=== PATIENT | female | born 1985 | race Caucasian/White ===

== ENCOUNTER 2016-11-09 14:23 | Inpatient (IN) | payer MEDICAID, OTHER ==
[~2016-11-09] VITALS: Ht 170.2 cm; Wt 86.4 kg
[~2016-11-09 14:23] MED LIST: AMPH20CA PO; GLYB1TAB2 PO; PREN1TAB47 PO; PROPYLTHIOURACIL PO
[2016-11-09] MEDS ORDERED: Haloperidol 5 mg/mL Inj IM ONE (14:40)
[2016-11-09 15:20] LABS: BASOPHILS % (AUTO) 0.4 % (0-3); EOSINOPHILS % (AUTO) 2.4 % (0-5); MONOCYTES % (AUTO) 8.7 % (4-12); Mean Corpuscular Volume 81.7 fL (81-100); NEUTROPHILS % (AUTO) 61.5 % (40-74); Platelet Count 241 bil/L (150-400)
--- NOTE | 2016-11-09 15:26 | ED.REPORT ---
HPI-Psychiatric Illness Date of Service Nov 09, 2016 ED Provider: Praveen Myers MD History of Present Illness: OCC Initial Face to Face eval by Dr. Hughes at 1445 at which time restraints placed Pt is a 31 y/o female w/ a hx of undiagnosed psychosis/mood disorder, presenting to the ED via PD due to agitation onset today. The police found her standing in the middle of the street yelling at everyone in sight including the police. The police said she became acutely agitated and they brought her into custody and brought her in here for a mental health evaluation. At time of interview she has been restrained and states that she has no rights and wants to be removed from restraints. She is uncooperative and thinks she is here for no reason. She initially was combative and agitated and still is. No further history can be obtained. Nursing Notes Stated Complaint: PSYCH Chief Complaint: Psychiatric Complaint Nursing Notes Reviewed: Yes ([employer], meds not reconciled) Allergies: Coded Allergies: No Known Allergies (Verified , 09/29/05) Scheduled ([propylthiouracil]) 50 MG PO BID Dextroamphetamine/Amphetamine ER (Dextroamphetamine/Amphetamine ER) 20 Mg Capsule 20 MG PO DAILY Glyburide, Micro/Metformin Hcl (Glyburide-Metformin 2.5/500 Mg) 1 Tab Tablet 1 TAB PO DAILY Vit/Fe Fumarate/Fa-Expunged Drug, Do (-Expunged Drug, Do Not Renew!) 1 Tab Tablet PO DAILY General Time Seen by MD: 15:16 Chief Complaint Other (agitation) Hx Obtained From: Patient, Police Unable to Obtain Hx: Uncooperative Arrived By: Police Onset Occurred: Just prior to arrival Risk-Psychiatric Illness Suicide Risk Stratification RF Statements: Risk factors reviewed Past Medical History Past Medical History Notes: Meds unknown Past Medical History Undiagnosed mood disorder/psychosis (prior HONEY) Past Surgical History None reported Smoking History Unknown if Ever Smoker Social History Alcohol Use: 1-3 per week Ambulatory Status Independent Review of Systems Unable to Obtain ROS Uncooperative Physical Exam Initial Vital Signs Vital Signs (First) Date Time Temp Pulse Resp B/P Pulse Ox O2 Delivery O2 Flow Rate FiO2 11/09/16 16:32 36.8 83 20 119/81 100 Room Air Initial VS: Reviewed, Unavailable (no vitals on chart, ordered) Head / Eyes: Atraumatic, Normocephalic, PERRL ENT: Mucous membranes moist, Conjunctiva normal, No scleral icterus Neck: Supple, Full range of motion Respiratory: Breath sounds normal, Clear to auscultation, No respiratory distress Abdomen / GI: Soft, Non-tender Extremities: Vascular intact, Neuro intact, No swelling General/Constitutional: Awake, Alert, Not toxic appearing No signs of trauma Uncooperative Neurologic: Oriented X3, Speech NL, No motor deficits, No sensory deficits PSYCH: Agitated, Hostile Combative yelling, rapid speech, No insight Cardiovascular: Regular rhythm, Heart sounds NL, No gallop, No murmurs, No rubs Heart Rate / Rhythm: Positive: Tachycardia Skin: Atraumatic, Warm, Dry No track tan Interpretation & Diagnostics Lab Results Interpretation Result Diagram: 11/09/16 1515 11/09/16 1515 Test 11/09/16 15:15 White Blood Count 9.2th/mm3 (3.8-10.1) Red Blood Count 5.62mil/mm3 (3.90-5.20) Hemoglobin 16.3g/dL (12.0-15.6) Hematocrit 45.9% (35.0-46.0) Mean Corpuscular Volume 81.7fL (81-100) Mean Corpuscular Hemoglobin 29.0pg (27.0-35.0) Mean Corpuscular Hemoglobin Concent 35.5% (32.0-37.0) Red Cell Distribution Width 12.9% (12.3-15.4) Platelet Count 241bil/L (150-400) Neutrophils (%) (Auto) 61.5% (40-74) Lymphocytes (%) (Auto) 26.7% (14-46) Monocytes (%) (Auto) 8.7% (4-12) Eosinophils (%) (Auto) 2.4% (0-5) Basophils (%) (Auto) 0.4% (0-3) Sodium Level 141mEq/L (134-144) Potassium Level 4.3mEq/L (3.5-5.2) Chloride Level 101mEq/L (97-108) Carbon Dioxide Level 21mmol/L (18-29) Blood Urea Nitrogen 12mg/dL (6-20) Creatinine 0.90mg/dL (0.57-1.00) Estimat Glomerular Filtration Rate 105mL/min (>59) Glucose Level 125mg/dL (60-99) Calcium Level 9.6mg/dL (8.5-10.1) Total Bilirubin 0.4mg/dL (0.0-1.2) Aspartate Amino Transf (AST/SGOT) 22U/L (0-50) Alanine Aminotransferase (ALT/SGPT) 13U/L (0-32) Alkaline Phosphatase 69U/L (25-150) Total Protein 7.1g/dL (6.4-8.4) Albumin 4.5g/dL (3.4-5.0) Thyroid Stimulating Hormone (TSH) 0.722uIU/mL (0.450-4.500) Human Chorionic Gonadotropin, Qual Negative (Negative) Lab Results Interpretation: CBC normal CMP normal TSH normal negative Alcohol 0 Patient refused to provide a urine sample ECG Interpretation Time: 16:50 Interpreted by: ED physician Normal ECG Interpretation: Normal ECG w/ rate of... (64), Normal rate, Normal sinus rhythm, No acute ischemic changes, Normal QRS, Normal axis, Normal intervals, Adequate tracing Re-Eval/Medical Decision Med Decision/Clinical Course Sustained 31-year-old female brought by police agitated and combative. Initially greeted by Dr. Robles, was combative enough that chemical sedation 4 point Restraints were required. I personally interviewed and examined the patient the patient still agitated, yelling at me, poor judgment and insight. According to the SHUTTLE ROUTE VEHICLE OPERATOR is able talk to the family, there has been some threats to herself and others. Please see the SHUTTLE ROUTE VEHICLE OPERATOR note. No visible signs of trauma were identified. Blood work was obtained and was normal. Alcohol is negative. Despite initial chemical sedation and restraints, the patient remained agitated , and additional doses were required. No acute medical etiology is identified. Even with this, the patient was remained inappropriate, pressured speech, agitation and psychosis. The SHUTTLE ROUTE VEHICLE OPERATOR's been able to gather enough information merited DCR evaluation. DCR came and evaluated the patient and the patient be detained. MedSurg is underway, with a high probability being able to be admitted to the care center. Source of Hx: Old records Consultation : Consulted With: expeller worker Call Returned at: 20:42 Career Agent: Agrees with eval, Agrees with plan Note: Recommends contact DCR. Counseled Regarding: Diagnosis, Lab results Discharge & Departure Impression: Primary Impression: Psychosis Psychosis type: unspecified psychosis type Qualified Code: F29 - Unspecified psychosis not due to a substance or known physiological condition Discharge Condition All VS Reviewed: Yes Condition: Stable Referrals: Leigh Delcid DO (PCP) Heidi Attestation Portions of this note were transcribed by Mauricio Victor. I, Dr. Myers personally performed the history, physical exam and medical decision-making; I reviewed and confirmed the accuracy of the information in the transcribed note. Signed by Heidi Green, 11/09/16 - 1599 copies to: Leigh Delcid Matthew F MD Nov 09, 2016 15:26 MAURICIO VICTOR Nov 09, 2016 15:46
[2016-11-09 16:32] VITALS: BP 119/81; PULSE 83; RESP 20; O2SAT 100
[2016-11-09 20:46] VITALS: BP 131/96; PULSE 60; RESP 18; O2SAT 99
[2016-11-10 01:14] VITALS: BP 129/92; PULSE 70; RESP 18; O2SAT 96
[2016-11-10 05:14] VITALS: BP 122/87; PULSE 64; RESP 20; O2SAT 97
[2016-11-10] MEDS ORDERED: OLANZapine Zydis ODT 5 mg Tablet PO ONE (05:25)
[2016-11-10] MEDS ORDERED: Alum-Mag Hydrox-Simeth 30 mL Suspension PO PRN (05:35)
[2016-11-10] MEDS ORDERED: OLANZapine Zydis ODT 5 mg Tablet PO PRN (05:35)
[2016-11-10] MEDS ORDERED: Benzocaine-Menthol Lozenge 2/Pkg PO PRN (05:35)
[2016-11-10 05:44] VITALS: BP 122/87; PULSE 64; RESP 20; O2SAT 97
--- NOTE | 2016-11-10 05:53 | NUR ---
admit note 11-7 this is a 31 year old female who was brought to [facility] er by police after being found in the street yelling at traffic. she was medically cleared, evaluated and detained vanessa as a danger to others. her parents were recently given custody of her children and she has been threatening them, herself and the children. she has a past dx of anxiety disorder and schizophrenia per her parents. she was detained at [facility] in 2016. did not follow up with out patient. she arrived at 0540 with er staff and security. was given bed 229 and is resting quietly at this time. will be assessed q 15 minutes. kinsey
--- NOTE | 2016-11-10 06:43 | NUR ---
ADMIT/NOC OBS Pt arrived to unit at 540. She did not sign paperwork and went right to bed. Pt was tearful and refused to interact with staff upon arrival. Observed Q15 as ordered.
[2016-11-10] MEDS ORDERED: DEXT20TA8 PO (10:28)
[2016-11-10] MEDS ORDERED: LISD30CA3 PO (10:28)
--- NOTE | 2016-11-10 14:24 | NUR ---
Nursing Notes [id number] (This note was made by Harinder Garnica RN, I currently do not have access to Mental Health Unit patient list) S- "I dont hear anything or see anything. I dont have thoughts of hurting others or myself. I never have." O- Pt. in bed all morning. Makes eye contact when communicating. Pt. appears as if she wants to be left alone by answering questions rapidly yet appropriately. Pt. is slightly unkempt as well. A- Clear statements, makes eye contact and maintains when communicating. Pt. refused breakfast and lunch stating she is not hungry. Pt. goes back to sleep after answering questions. Denies hurting others or herself when asked. P- Follow plan of care, monitor behavior, monitor side effects of medication, safety to Pt. and others (This note was made by Harinder Garnica RN, I currently do not have access to Mental Health Unit patient list)
--- NOTE | 2016-11-10 16:51 | NUR ---
[facility] Day Shift Pt has spent the entirety of the shift resting/sleeping in her room. Unable to determine affect and behavior at this time. Pt has not attended any group activities or meals at this time.
--- NOTE | 2016-11-10 17:57 | NUR ---
PT REFUSING MEDICATION Pt. refused her 17:30 scheduled dose of Latuda this evening. Stated: "I'm not taking any medications, I'm not supposed to be here, I've never heard voices and I'm not depressed! My dad set me up! I need to get out of here!"
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
--- NOTE | 2016-11-11 05:36 | NUR ---
Nursing note: equipment planner Patient appears to be sleeping on safety checks during the night. Offers no complaints.
[2016-11-11 10:55] VITALS: BP 145/91; PULSE 68; RESP 13
--- NOTE | 2016-11-11 13:29 | NUR ---
NURS NOTE DAYSHIFT Mood: Anxiety 07/21; denies depression. Affect: Intense. Thought Process/Content: "I think I own a lot of land in [place], maybe land where there is a war. Im not sure. Its the only explanation that makes since. I've got this idea for an [employer] of things . . . 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 Speech, pressured and rapid. Behavior: Appropriate with staff and peers. Ate meals in dining room, observed watching television with peers. Currently resting in room. Pt given yoga mat for stretching. PRNs/NURS: Pt refused PM lurasidone 40 mg. yesterday (11/10/16) Addendum: 11/11/16 at 1333 by YU CLEMONS RN DenVALERIA tyler SI. CESAR Bautista.
--- NOTE | 2016-11-11 15:54 | NUR ---
Electron Beam Welder/Counselor S:"I"m really upset with the whole process." O: Patient denied SI and HI, no AVH, stated her anxiety was fine, and that she did not have very much depression. A: Patient stated she did not know why she was here, and was upset at not being discharged. She stated that she was set up, and that it was due to her father being an commonwealth attorney. She was very delusional and tangential, and very grandiose. She was erratic and rapid in her speech. P: Follow care plan and coordinate with outpatient providers.
--- NOTE | 2016-11-11 16:52 | PCM.PNPSY ---
Subjective Date of Service Nov 11, 2016 Subjective The patient reports that she is unsure why she is in hospital. She continues to report that she believes she did nothing wrong and should not be in the hospital. She goes on to talk about the police being controlled by her father in some form of conspiracy. 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 She talked about having purchased a number of Internet names which were related to commerce. Since the local port at increased activity she felt it was due to her. She then indicated that she might have land that is being kept from her such as possibly the port. When she was asked who typically owns reports she stated, "the government... Maybe I am deep government ?" The patient went on to talk about [place] her [place] reflecting her own heart etc. the patient has so far refused Latuda. Urine tox screen came back positive for amphetamines and cannabinoids. Given her psychosis she was advised to avoid Adderall or other amphetamines and at some later date to consider Strattera. Sleep: 8 hours Appetite: One half of breakfast one half at lunch. Suicidal and homicidal ideation: Denies Auditory hallucinations: Denies Visual hallucinations: Denies Other Psychotic Symptoms: As above, paranoid delusions, ideas of reference and clang associations. Anxiety: "Fine" Depression: "Not so much" Current Medications Current Medications Olanzapine 5 mg ONCE ONCE PO Last administered on 11/10/16 05:27; Admin Dose 5 MG; Start 11/10/16 at 05:25; Stop 11/10/16 at 05:26; Status DC Olanzapine 10 mg ONCE ONCE IM Last administered on 11/09/16 17:49; Admin Dose 10 MG; Start 11/09/16 at 17:35; Stop 11/09/16 at 17:36; Status DC Mental Status Exam Vital Signs Vital Signs Date Time Temp Pulse Resp B/P Pulse Ox O2 Delivery O2 Flow Rate FiO2 11/11/16 10:55 35.5 68 13 145/91 Appearance: Neat/well groomed Attitude: Guarded Behavior: Overtly anxious Affect: Labile Mood: Irritable Thought Process/Associations: Loose, Tangential Speech Production: Abundant Speech Rate: Pressured Speech Articulation: Normal Thought Content: Ideas of Reference, Suspicious, Perseveration Danger to Self/Suicidal Ideati: None Danger to Others: None Hallucinations: Auditory (Denies), Visual (Denies) Consciousness: Alert Orientation: Person, Place, Date Memory: Short Term Memory (Impaired) Estimate Intellectual Function: Average Basis for IQ estimate: Word use/vocabulary, Educational history Attention/Concentration & Cogn: Impaired Insight: Limited Judgement: Poor Result Diagram: 11/09/16 1515 11/09/16 1515 Mental Health Plan The patient is a 31-year-old female with a history of psychotic disorder who reportedly has been using Adderall. There is also some question of whether there is a history of schizophrenia schizophrenia. The patient did not follow up with outpatient mental health care and apparently has been declining prior to admission. She is currently presenting with paranoid delusions, ideas of reference and clanging associations. She is currently declining medications. [place] I: 1. Psychotic disorder, unspecified. 2. Marijuana use disorder. 3. Rule out amphetamine use disorder. [place] II: Deferred. [place] III: See past medical history. [place] IV: Loss of custody of children. Other stressors unknown. [place] V: Global Assessment of Functioning 25. Medications Latuda 40 mg daily increase as tolerated Treatments 1. The patient will be admitted to the [facility] and provided a safe and secure environment. 2. The patient is currently denying active suicidal ideation and is not in need of a one-to-one at this time. 3. The patient is encouraged to participate with group and milieu activities. 4. The patient will be seen by the treatment team on a daily basis to assess symptoms, side effects, and response to treatment. 5. The patient will be restarted on lurasidone 40 mg daily and increase to 40 mg twice daily due to psychotic symptoms. 6. Lorazepam 2 mg every 4 hours as needed for anxiety or agitation. 7. Olanzapine 10 mg q.6 hours due to severe agitation. 8. Zolpidem 5 mg nightly as needed for insomnia. 9. Anticipated length of stay is 7-10 days. Omari Vazquez MD Nov 11, 2016 16:52
--- NOTE | 2016-11-12 03:22 | NUR ---
OBS [id number] Pt out on unit watching TV in beginning of shift. In room most of shift. Brief interaction Pt refused group and snack but was pleasant with no outbursts. Asleep at 2100. Observed Q15 as ordered.
--- NOTE | 2016-11-12 06:35 | NUR ---
Sleep Adequate sleep through the night with no noted distress or awakening per protocol checks. Total sleep 9+ hours.
[2016-11-12] MEDS: LORazepam 2 mg Tablet PO PRN (08:41)
--- NOTE | 2016-11-12 14:44 | NUR ---
Nursing Notes [id number] (This note was made by Harinder Garnica RN, I currently have no access to Mental Health Unit patient list.) S- "You guys are holding me against my will. I want to see court documents that are stamped by the court saying I am being held here by court order." O- Pt. up this morning will kept and angry about not having a registered private duty nurse. Pt. stating that "If this was prison I would have a registered private duty nurse within 24 hours and I have been here for 3 days now. Why am I even here?" Pt. was given copies of her documents stating why she is here including what the police said and Pt. states "the documents are lies, all lies, I dont have mental problems and I am the best mother out there. How do you know those documents are telling the truth?" A- Pt. is angry this morning for being here more than 3 days. When Pt. was arguing at times it was hard to understand her as she would not make sense. Pt. did take her medications and then afterwards began to apologize for her misbehavior to the staff. P- Follow plan of care, monitor behavior, monitor side effects of medication, safety to Pt. and others (This note was made by Harinder Garnica RN, I currently have no access to Mental Health Unit patient list.)
[2016-11-12 16:30] VITALS: BP 126/91; PULSE 86; RESP 16
--- NOTE | 2016-11-12 21:06 | NUR ---
Observations 0900 - 2130 Pt affect and mood was labile, agitated, irritable, upset about being here and delusional. Pt speech was very loud when agitated and normal rate of speech when not agitated. Pt eye contact was ok. Pt is pleasant, polite and cooperative. Pt was in and out of her room most of the day. Pt attended community meeting and set a daily goal. Pt did not attend group or unit activities. Pt is minimally social with peers and mostly keeps to herself. Pt attended meals in D.R. and has a good appetite. Pt ate about 100% of her meals. Pt ate snack. Pt took a shower and attended to ADL's. Pt watched TV briefly before going to her room for the evening. Pt had a couple of outbursts during the day and voicing her concerns and beliefs that she is being held against her will. Pt had a couple of phone calls from her mom and she was shouting how it was her moms fault she is here and continued to yell at her mom. Pt was talked to by headline writer about yelling and language while on the phone. Pt was observed every 15 minutes as ordered throughout the shift.
--- NOTE | 2016-11-12 23:33 | PCM.PNPSY ---
Subjective Date of Service Nov 12, 2016 Subjective The patient reports that she is unsure why she is in hospital. She continues to report that she believes she did nothing wrong and should not be in the hospital. She again talked about the police being controlled by her father in some form of conspiracy. She stated that she should be released. She reported having read the [facility] paperwork. She stated that there was o reason why she could not be released early and demanded to know why she was still here. Informed patient that she is suffering from psychotic disorder and not appropriate for discharge. Informed of experiencing ideas of reference, clang associations, delusions. Patient demands, "I want an attorney general, a public relations intern, now!" Informed patient that messages have been left. Patient became increasingly agitated and conversation ended. Sleep: 9+ hours Appetite: Poor Suicidal and homicidal ideation: Denies Auditory hallucinations: Denies Visual hallucinations: Denies Other Psychotic Symptoms: As above, paranoid delusions, ideas of reference and clang associations. Endorses racing thoughts, but adds, "Just thinking." Anxiety: "Just here" Depression: denies Mental Status Exam Vital Signs Vital Signs Date Time Temp Pulse Resp B/P Pulse Ox O2 Delivery O2 Flow Rate FiO2 11/12/16 16:30 35.8 86 16 126/91 Appearance: Neat/well groomed Attitude: Guarded, Hostile/Threatening Behavior: Overtly anxious Affect: Labile Mood: Irritable Thought Process/Associations: Loose, Tangential Speech Production: Abundant Speech Rate: Pressured Speech Articulation: Normal Thought Content: Ideas of Reference, Suspicious, Perseveration Danger to Self/Suicidal Ideati: None Danger to Others: None Delusions: Paranoid (Endorses) Hallucinations: Auditory (Denies), Visual (Denies) Consciousness: Alert Orientation: Person, Place, Date Memory: Short Term Memory (Impaired) Estimate Intellectual Function: Average Basis for IQ estimate: Word use/vocabulary, Educational history Attention/Concentration & Cogn: Impaired Insight: Limited Judgement: Poor Result Diagram: 11/09/16 1515 11/09/16 1515 Mental Health Plan The patient is a 31-year-old female with a history of psychotic disorder who reportedly has been using Adderall. There is also some question of whether there is a history of schizophrenia schizophrenia. The patient did not follow up with outpatient mental health care and apparently has been declining prior to admission. She is currently presenting with paranoid delusions, ideas of reference and clang associations. She is quite agitated with poor insight and not appropriate for discharge. [place] I: 1. Psychotic disorder, unspecified. 2. Marijuana use disorder. 3. Rule out amphetamine use disorder. [place] II: Deferred. [place] III: See past medical history. [place] IV: Loss of custody of children. Other stressors unknown. [place] V: Global Assessment of Functioning 25. Medications Latuda 40 mg daily increase as tolerated Treatments 1. The patient will be admitted to the [facility] and provided a safe and secure environment. 2. The patient is currently denying active suicidal ideation and is not in need of a one-to-one at this time. 3. The patient is encouraged to participate with group and milieu activities. 4. The patient will be seen by the treatment team on a daily basis to assess symptoms, side effects, and response to treatment. 5. The patient will be restarted on lurasidone 40 mg daily and increase to 40 mg twice daily due to psychotic symptoms. 6. Lorazepam 2 mg every 4 hours as needed for anxiety or agitation. 7. Olanzapine 10 mg q.6 hours due to severe agitation. 8. Zolpidem 5 mg nightly as needed for insomnia. 9. Anticipated length of stay is 7-10 days. Omari Vazquez MD Nov 12, 2016 23:33
--- NOTE | 2016-11-13 05:16 | NUR ---
Nursing Note Body Welder 11pm to 7am Pt asleep at start of shift and slept through the night uninterrupted Pt monitored with q15 min face checks for safety, location and accountability
--- NOTE | 2016-11-13 09:52 | NUR ---
nursing: Pt is pressured, hyperverbal and obsessing on her legal paperwork, sure she's being held on false claims, and wrongly. She spirals up on this periodically("Why am I here! Why am I here!") but will argue with any thing we try to say. Fortunately will stop for a while(so far) when we call a time out. She has no insight into how or why she is here. Some grandiosity (" I have always been perfect mother!" Addendum: 11/13/16 at 1417 by GIULIANO WHEELER RN nursing, continued: She later was able to drop it, was out in the milieu and social, and declined afternoon group. But started all over again in discussion with the MD which had to finally be stopped as it was going no where and pt went to her room on her own.
--- NOTE | 2016-11-13 15:38 | NUR ---
Building Surveyor/Counselor S:"I still don't understand why I"m here." O/A: Patient did not answer questions, but wanted to focus on being allowed to leave. She re-engaged the and other staff into a circular conversation in regard to her reason for being detained, her HONEY status and her court date on sunday. She was very aggressive, agitated and angry.She was also very grandiose and tangential, and did not understand why she would be diagnosed with Psychosis. The interview was terminated due to the patient not being willing to listen. She has also been very demanding of the [facility] staff, demanding a phone, clothes, etc. P:Follow care plan and coordinate with outpatient providers.
[2016-11-13 17:57] VITALS: BP 140/88; PULSE 69; RESP 19
--- NOTE | 2016-11-13 18:06 | NUR ---
Observations [id number] Pt very agitated in the morning regarding her stay here. Pt requested legal rights be printed off which this ticket writer provided to her. This ticket writer observed her yell at other staff regarding her stay and rights. Pt later paced unit with another pt and calmed down. Pt friendly with peers, socializing much of the day. She did attend groups and do yoga in the morning. Pt used the phone and spoke with mother, was heard crying and noticeably upset. Pt attended all meals, eating 75%. She was observed every 15 minutes of shift as directed.
--- NOTE | 2016-11-13 22:27 | NUR ---
NURS NOTE [id number] Mood: Irritable. Affect: Elevated. Behavior: Pt observed speaking to mother on the telephone in a loud, argumentative. Staff reminded pt multiple times to lower volume, pt eventually quieted down and hung up phone. Somewhat, Thought Content/Process: "I've read like the whole law." Delusional, grandiose.
--- NOTE | 2016-11-13 22:35 | PCM.PNPSY ---
Subjective Date of Service Nov 13, 2016 Subjective The patient reports that she is unsure why she is in hospital. She continues to report that she believes she did nothing wrong and should not be in the hospital. The patient reported that she was unfairly treated by the police. She stated that she should be released and that this production underwriter had no right to not release her. As patient became increasingly agitated, nursing staff was brought in. She reported having read the [facility] paperwork. Patient was angry that this production underwriter had called another patients psychiatrist and although she had not provided the name, I should know it and call. She initially declined to provide the name but eventually indicated that Dr.David Griffin is her psychiatrist and requested that this production underwriter call him. She again stated that there was no reason why she should not be released early and demanded to know why she was still here. Informed patient that she is suffering from psychotic disorder and not appropriate for discharge. Informed of experiencing ideas of reference ([place], [address] behind her apartment, indicated she was the "heart of [place]"), clang associations, delusions (owning port or being part of "[employer]"). Patient again demanding health care attorney and indicated that she had left messages but received no answer yet. Patient continued to escalate and interview terminated. Sleep: 7+ hours Appetite: Poor Suicidal and homicidal ideation: Denies Auditory hallucinations: Denies Visual hallucinations: Denies Other Psychotic Symptoms: As above, paranoid delusions, ideas of reference and clang associations. Anxiety: 8/10 Depression: 0/10 Mental Status Exam Vital Signs Vital Signs Date Time Temp Pulse Resp B/P Pulse Ox O2 Delivery O2 Flow Rate FiO2 11/13/16 17:57 36.6 69 19 140/88 Appearance: Neat/well groomed Attitude: Guarded, Hostile/Threatening Behavior: Overtly anxious Affect: Labile Mood: Irritable Thought Process/Associations: Loose, Tangential Speech Production: Abundant Speech Rate: Pressured Speech Articulation: Normal Thought Content: Ideas of Reference, Suspicious, Perseveration Danger to Self/Suicidal Ideati: None Danger to Others: None Delusions: Paranoid (Endorses) Hallucinations: Auditory (Denies), Visual (Denies) Consciousness: Alert Orientation: Person, Place, Date Memory: Short Term Memory (Impaired) Estimate Intellectual Function: Average Basis for IQ estimate: Word use/vocabulary, Educational history Attention/Concentration & Cogn: Impaired Insight: Limited Judgement: Poor Result Diagram: 11/09/16 1515 11/09/16 1515 Mental Health Plan The patient is a 31-year-old female with a history of psychotic disorder who reportedly has been using Adderall. There is also some question of whether there is a history of schizophrenia schizophrenia. The patient did not follow up with outpatient mental health care and apparently has been declining prior to admission. She is currently presenting with paranoid delusions, ideas of reference and clang associations. She is quite agitated with poor insight and not appropriate for discharge. Patient's psychiatrist reports patient has ongoing ideas of reference and delusions as above more consistent with schizophrenia or schizoaffective disorder. Discussed current recommendations, outpatient provider concurred with plan. [place] I: 1. Schizophrenia, chronic, paranoid type vs. Schizoaffective disorder 2. Marijuana use disorder. 3. Rule out amphetamine use disorder. [place] II: Deferred. [place] III: See past medical history. [place] IV: Loss of custody of children. Other stressors unknown. [place] V: Global Assessment of Functioning 25. Medications Latuda 40 mg daily increase as tolerated Treatments 1. [facility] and provided a safe and secure environment. 2. The patient is currently denying active suicidal ideation and is not in need of a one-to-one at this time. 3. The patient is encouraged to participate with group and milieu activities. 4. The patient will be seen by the treatment team on a daily basis to assess symptoms, side effects, and response to treatment. 5. The patient will be restarted on lurasidone 40 mg daily and increase to 40 mg twice daily due to psychotic symptoms. 6. Lorazepam 2 mg every 4 hours as needed for anxiety or agitation. 7. Olanzapine 10 mg q.6 hours due to severe agitation. 8. Zolpidem 5 mg nightly as needed for insomnia. 9. Anticipated length of stay is 10-14 days. Omari Vazquez MD Nov 13, 2016 22:35
--- NOTE | 2016-11-14 06:04 | NUR ---
Noc shift note [id number] Pt agreeable to care needs and slept 6.25 hours without s/sx of distress. No behavioral issues reported or observed. Continue to monitor for behavioral issues, mood changes, emotional well being by implementing Q15 minute check for safety. Care ongoing.
[2016-11-14 08:10] VITALS: BP 152/110; PULSE 70; RESP 16
--- NOTE | 2016-11-14 13:55 | NUR ---
Nursing: Pt continues labile: at times pleasant, social and helpful to peers; at other times(eg after the court ida tried to talk to her about her rights to refuse before court tomorrow. She would not sign either yes or no) is loud, angry, demanding to see administration, physician, "immediately" and going over and over the complaints again of being held wrongly, not having her rights, arguing about her legal paperwork. She can not be reasoned with at these times or even listen to any explanations, so we have to cut it off and direct her to a time out which she fortunately does comply with. She has been compliant with her scheduled medications but declined any prns. She later requested all her legal paperwork and this was given. She is now sitting in the day room, smiling talking with peers and staff. She continues phone restriction due to loud, hostile agitated conversations.
--- NOTE | 2016-11-14 15:29 | NUR ---
S:"I'm going to have your license." O: Patient did not report any SI, HI, no AVH, no anxiety or depression. A: Patient was tangential and angry, very uncooperative and hostile towards staff. She refused to listen to any explanation to her demands and questions. When interacting with other patients, she is friendly and pleasant. Interview was terminated early due to patient's behavior and threats. P:Follow care plan and coordinate with outpatient providers.
--- NOTE | 2016-11-14 18:09 | PCM.PNPSY ---
Subjective Date of Service Nov 14, 2016 Subjective The patient presented a complaint to the nurse's station indicating that there were individuals talking to her yesterday during the treatment team meeting that she did not recognize. When the nurse was brought back in yesterday, she was introduced and the patient's counselor was also later in attendance. The master deputy sheriff court security later appeared, identified herself and that she did not need to speak with this individual. The patient continued to talk as if nothing had been said. Today, the patient reports that she is "pretty agitated. I am reporting you to the medical board. I need another doctor." The patient was offered a second opinion by hospitalist but was informed that there was no other psychiatrist at the present moment, she did not respond to offer. The patient was advised to speak with her securities attorney regarding her request but she stated that she did not want Danya Martin is her securities attorney. The patient escalated fairly quickly and the interview was terminated. Sleep: 6.25 hours Appetite: "Fine" Suicidal and homicidal ideation: Denies Auditory hallucinations: Denies Visual hallucinations: Denies Other Psychotic Symptoms: Ongoing paranoia and lack of insight Anxiety: "Super anxiety." Depression: Denies Mental Status Exam Appearance: Neat/well groomed Attitude: Guarded, Hostile/Threatening Behavior: Overtly anxious Affect: Labile Mood: Irritable Thought Process/Associations: Loose, Tangential Speech Production: Abundant Speech Rate: Pressured Speech Articulation: Normal Thought Content: Ideas of Reference, Suspicious, Perseveration Danger to Self/Suicidal Ideati: None Danger to Others: None Delusions: Paranoid (Endorses) Hallucinations: Auditory (Denies), Visual (Denies) Consciousness: Alert Orientation: Person, Place, Date Memory: Short Term Memory (Impaired) Estimate Intellectual Function: Average Basis for IQ estimate: Word use/vocabulary, Educational history Attention/Concentration & Cogn: Impaired Insight: None Judgement: Poor Result Diagram: 11/09/16 1515 11/09/16 1515 Mental Health Plan The patient is a 31-year-old female with a history of psychotic disorder who reportedly has been using Adderall. There is also some question of whether there is a history of schizophrenia. The patient did not follow up with outpatient mental health care and apparently has been declining prior to admission. She is currently presenting with paranoid delusions, ideas of reference and clang associations. She is quite agitated with little to no insight and not appropriate for discharge. Patient's psychiatrist reports patient has ongoing ideas of reference and delusions as above more consistent with schizophrenia or schizoaffective disorder. Discussed current recommendations, outpatient provider concurred with plan. The patient has continued to refuse medications and is now requesting a second opinion. She is also demanding an alternate securities attorney. Will discuss patient requests with her securities attorney for an outside second opinion. [place] I: 1. Schizophrenia, chronic, paranoid type vs. Schizoaffective disorder 2. Marijuana use disorder. 3. Rule out amphetamine use disorder. [place] II: Deferred. [place] III: See past medical history. [place] IV: Loss of custody of children. Other stressors unknown. [place] V: Global Assessment of Functioning 25. Medications Latuda 40 mg daily increase as tolerated Treatments 1. The patient is admitted to the [facility] and provided a safe and secure environment. 2. The patient is currently denying active suicidal ideation and is not in need of a one-to-one at this time. 3. The patient is encouraged to participate with group and milieu activities. 4. The patient will be seen by the treatment team on a daily basis to assess symptoms, side effects, and response to treatment. 5. The patient will be restarted on lurasidone 40 mg daily and increase to 40 mg twice daily due to psychotic symptoms. 6. Lorazepam 2 mg every 4 hours as needed for anxiety or agitation. 7. Olanzapine 10 mg q.6 hours due to severe agitation. 8. Zolpidem 5 mg nightly as needed for insomnia. 9. Anticipated length of stay is 10-14 days. Omari Vazquez MD Nov 14, 2016 18:09
--- NOTE | 2016-11-14 18:28 | NUR ---
Observations [id number] Pt very agitated in the morning, yelling in dining area regarding her stay and her rights. "Who is this lady? My rights have been violated!" (referring to freelance court stenographer.) Pt very upset that previous visit with doctor included case management and care team. Pt yelled at multiple staff regarding this, was redirected to room. Pt also called [facility] on three different occasions regarding her care. Pt was eventually placed on phone restriction. Pt attended all meals, eating an average of 75%. She visited with her Dad in the afternoon, becoming again very agitated and irritable regarding the fact that she has court and is not being released today. This junior technical writer overhead her stating to her father " you raised me to be strong- I'm standing up for myself....if that's wrong now then you're not my father!" Pt walked out of her meeting with her Dad. She later played ping pong with peers. Pt good with ADL's, was observed every 15 minutes of shift as directed.
--- NOTE | 2016-11-14 19:57 | NUR ---
NURSING NOTE [id number] Mood: "Go away. I don't need to talk to you" Affect: bright and pleasant in milieu w/peers, irritable w/staff Behavior: pt. has been visible all shift, spending time in milieu chatting w/peers, went out on the patio, paced the hallways off and on. Pt. refused her scheduled 17:30 Latuda. Whenever staff attempts to interact w/pt. or assess her, the pt. begins to become agitated. Thought processes: paranoid, lacks insight into illness.
--- NOTE | 2016-11-15 06:24 | NUR ---
Nursing Note Assistance Representative 11pm to 7am Pt asleep at start of shift and slept uninterrupted throughout the night Monitored pt with 15 minute face checks for safety, location and accountability
[2016-11-15 10:35] VITALS: BP 139/105; PULSE 68; RESP 16
[2016-11-15] MEDS ORDERED: Haloperidol 5 mg/mL Inj ONE (14:30)
[2016-11-15] MEDS ORDERED: Haloperidol 5 mg/mL Inj IM ONE (14:30)
[2016-11-15] MEDS ORDERED: diphenhydrAMINE 25 mg Capsule PO ONE (14:39)
--- NOTE | 2016-11-15 15:25 | NUR ---
Nursing day [id number] S- "I am a good mother and I was talking metaphorically about burning the house down. 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 up this morning will kept and ready for court. Pt. is observed eating with other Pts. for breakfast and lunch. Pt. is also being social with other Pts. At ~1400 Pt. requested for a phone call but was reminded she is on phone restrictions and triggered her to get more upset and angry, barged into the courtroom. We were able to get Pt. to leave the court room and about 1410 catarino lee was called. Pt. was taken into seclusion yelling the entire way at ~1430. A- Pt. got extremely upset, angry and agitated when reminded that she is on a phone restriction. Catarino lee was called and Pt. was taken into seclusion room. P- Follow plan of care, monitor behavior, monitor side effects of medication, safety to Pt. and others Addendum: 11/15/16 at 1635 by ISABELA MCDONNELL RN Pt. went into seclusion at 1430. Door was opened at 1620. Please see seclusion interventions for documentation notes.
[2016-11-15] MEDS: LORazepam 2 mg Tablet PO PRN (15:32)
--- NOTE | 2016-11-15 17:37 | NUR ---
[facility] Day Shift Pt has difficulty maintaining behavioral control throughout the shift. Pt affect appears labile. Pt appears bright, enthusiastic in the AM, angry and hostile in the afternoon following court proceedings. Pt placed in seclusion after failing to follow instructions to stop screaming and threatening staff in the dining room. Pt returned to the unit at 16:20 following the establishment of a behavioral contract with staff. Pt has remained in her bed/room since. Pt attended community meeting and AM group activities, but has been isolative throughout the afternoon/evening. Pt attended breakfast and lunch and ate approx 100% of both meals. Pt has not attended dinner at this time.
--- NOTE | 2016-11-15 23:07 | PCM.PNPSY ---
Subjective Date of Service Nov 15, 2016 Subjective The patient was detained for 14 days of inpatient treatment and following court became agitated and eventually was placed in seclusion due to severe agitation. The patient was agitated, refused oral medications.spit them out. She was giving haloperidol 5mg, Benadryl 50mg and lorazepam 2mg for severe agitation. The patient continues to report that there is nothing wrong with her and that she not be treated with medication. Discussed with patient that her consistent refusal of medication would suggest need for long-active injectable medication. Discussed risks and benefits of Risperdal and Abilify including metabolic syndrome and TD and patient chose Risperdal. Sleep: 9.25 hours Suicidal and homicidal ideation: Denies Auditory hallucinations: Denies Visual hallucinations: Denies Other Psychotic Symptoms: Ongoing paranoia and lack of insight Anxiety: Due to court and seclusion. Depression: Denies Current Medications Current Medications Diphenhydramine HCl 50 mg ONCE ONCE IM Last administered on 11/15/16 15:23; Admin Dose 25 MG; Start 11/15/16 at 14:30; Stop 11/15/16 at 14:50; Status DC Diphenhydramine HCl 50 mg STK-MED ONCE .ROUTE Last administered on 11/15/16 15: 24; Admin Dose 25 MG; Start 11/15/16 at 14:31; Stop 11/15/16 at 14:32; Status DC Haloperidol Lactate 5 mg STK-MED ONCE .ROUTE Last administered on 11/15/16 15:22 ; Admin Dose 5 MG; Start 11/15/16 at 14:30; Stop 11/15/16 at 14:31; Status DC Lurasidone HCl 40 mg DAILYWD PO Last administered on 11/15/16 17:51; Admin Dose 40 MG; Start 11/14/16 at 17:30 Mental Status Exam Appearance: Neat/well groomed Attitude: Guarded, Hostile/Threatening Behavior: Overtly anxious Affect: Labile Mood: Irritable Thought Process/Associations: Loose, Tangential Speech Production: Abundant Speech Rate: Pressured Speech Articulation: Normal Thought Content: Ideas of Reference, Suspicious, Perseveration Danger to Self/Suicidal Ideati: None Danger to Others: None Delusions: Paranoid (Endorses) Hallucinations: Auditory (Denies), Visual (Denies) Consciousness: Alert Orientation: Person, Place, Date Memory: Short Term Memory (Impaired) Estimate Intellectual Function: Average Basis for IQ estimate: Word use/vocabulary, Educational history Attention/Concentration & Cogn: Impaired Insight: None Judgement: Poor Result Diagram: 11/09/16 1515 11/09/16 1515 Mental Health Plan The patient is a 31-year-old female with a history of psychotic disorder who reportedly has been using Adderall. There is also some question of whether there is a history of schizophrenia schizophrenia. The patient did not follow up with outpatient mental health care and apparently has been declining prior to admission. She is currently presenting with paranoid delusions, ideas of reference and clang associations. She is quite agitated with little to no insight and not appropriate for discharge. Patient's psychiatrist reports patient has ongoing ideas of reference and delusions as above more consistent with schizophrenia or schizoaffective disorder. Discussed current recommendations, outpatient provider concurred with plan. The patient has continued to refuse medications and is now requesting a second opinion. She is also demanding an alternate group home paraprofessional. The patient was subsequently detained on a 14 day hold with seclusion as above. Will start Risperidone. [place] I: 1. Schizophrenia, chronic, paranoid type vs. Schizoaffective disorder 2. Marijuana use disorder. 3. Rule out amphetamine use disorder. [place] II: Deferred. [place] III: See past medical history. [place] IV: Loss of custody of children. Other stressors unknown. [place] V: Global Assessment of Functioning 25. Medications Risperdal 2mg nightly increase as tolerated Treatments 1. The patient is admitted to the [facility] and provided a safe and secure environment. 2. The patient is currently denying active suicidal ideation and is not in need of a one-to-one at this time. 3. The patient is encouraged to participate with group and milieu activities. 4. The patient will be seen by the treatment team on a daily basis to assess symptoms, side effects, and response to treatment. 5. Discontinue Latuda, start risperidone 2mg po nightly. 6. Lorazepam 2 mg every 4 hours as needed for anxiety or agitation. 7. Olanzapine 10 mg q.6 hours due to severe agitation. 8. Zolpidem 5 mg nightly as needed for insomnia. 9. Anticipated length of stay is 10-14 days. Omari Vazquez MD Nov 15, 2016 23:07 Omari Vazquez MD Nov 15, 2016 23:07
[2016-11-15] MEDS: risperiDONE 2 mg Tablet PO SCH (23:17)
--- NOTE | 2016-11-16 05:19 | NUR ---
Nursing Noc Pt noted to be sleeping or in room resting this shift. Taking medications as prescribed, Noted to eat a late dinner in room this shift. Continuing to monitor mood behavior and emotional state by Q15 minute safety checks. CP
--- NOTE | 2016-11-16 15:46 | NUR ---
Nursing Day [id number] S- "Hey do I have any medications? I want to know so I can take them. I want to follow the rules so I dont get in trouble." O- Pt. up this morning and eating breakfast in the dining room socializing with other Pts. Smiling with other Pts. and helping them get their breakfast tray. Pt. also called [facility] courthouse looking for another hotel desk clerk stating that the hotel desk clerk she had for yesterdays court sucked. A- Pt. appears to be pleasant, social with other Pts. smiling. Pt. behavioral appearance is appropriate not yelling at stuff or other Pts. P- Follow plan of care, monitor behavior, monitor side effects of medication, safety to Pt. and others
[2016-11-16 17:20] VITALS: BP 129/86; PULSE 82; RESP 16
--- NOTE | 2016-11-16 18:44 | NUR ---
[facility] Day Shift Pt maintained behavioral control throughout the shift. Pt affect appears somewhat labile, manic throughout the shift (though less so than noted on previous shifts). Pt spends most of the shift pacing the unit, engaging with staff and peers, and participating in unit activities. Pt is appropriate with staff and peers when active on the unit. Pt is somewhat irritable in the AM, but has been pleasant throughout the late AM, afternoon, and evening. Pt attended community meeting in the AM and lightly participated in all group activities throughout the shift. Pt attended all meals and ate approx 90-100% of all meals.
--- NOTE | 2016-11-16 19:11 | NUR ---
Typist/Counselor: Patient attended group and participated in all discussions.
[2016-11-16] MEDS: risperiDONE 2 mg Tablet PO SCH (21:13)
--- NOTE | 2016-11-16 23:46 | PCM.PNPSY ---
Subjective Date of Service Nov 16, 2016 Subjective The patient reports that she is tired and is looking for an outside civil engineering professional. Patient reports that she doesn't see a reason for taking medications but will do so if it is part of discharge. Sleep: 10.5 hours Appetite: fine Suicidal and homicidal ideation: denies Auditory hallucinations:denies Visual hallucinations: denies Other Psychotic Symptoms: poor insight Anxiety: "high..I don't want to be inside." Depression: 0/10 Current Medications Current Medications Diphenhydramine HCl 50 mg ONCE ONCE IM Last administered on 11/15/16 15:23; Admin Dose 25 MG; Start 11/15/16 at 14:30; Stop 11/15/16 at 14:50; Status DC Diphenhydramine HCl 50 mg STK-MED ONCE .ROUTE Last administered on 11/15/16 15: 24; Admin Dose 25 MG; Start 11/15/16 at 14:31; Stop 11/15/16 at 14:32; Status DC Haloperidol Lactate 5 mg STK-MED ONCE .ROUTE Last administered on 11/15/16 15:22 ; Admin Dose 5 MG; Start 11/15/16 at 14:30; Stop 11/15/16 at 14:31; Status DC Risperidone 2 mg HS PO Last administered on 11/16/16 21:13; Admin Dose 2 MG; Start 11/15/16 at 21:00 Mental Status Exam Vital Signs Vital Signs Date Time Temp Pulse Resp B/P Pulse Ox O2 Delivery O2 Flow Rate FiO2 11/16/16 17:20 36.4 82 16 129/86 Appearance: Neat/well groomed Attitude: Guarded Behavior: Overtly anxious Affect: Restricted Mood: Irritable Thought Process/Associations: Other (Poverty of speech) Speech Production: Paucity Speech Rate: Normal, Lags/Latency Speech Articulation: Normal Thought Content: Ideas of Reference, Suspicious, Perseveration Danger to Self/Suicidal Ideati: None Danger to Others: None Delusions: Paranoid (Endorses) Hallucinations: Auditory (Denies), Visual (Denies) Consciousness: Alert Orientation: Person, Place, Date Memory: Short Term Memory (Impaired) Estimate Intellectual Function: Average Basis for IQ estimate: Word use/vocabulary, Educational history Attention/Concentration & Cogn: Impaired Insight: Limited Judgement: Poor Mental Health Plan The patient is a 31-year-old female with a history of psychotic disorder who reportedly has been using Adderall. There is also some question of whether there is a history of schizophrenia schizophrenia. The patient did not follow up with outpatient mental health care and apparently has been declining prior to admission. She is currently presenting with paranoid delusions, ideas of reference and clang associations. She is quite agitated with little to no insight and not appropriate for discharge. Patient's psychiatrist reports patient has ongoing ideas of reference and delusions as above more consistent with schizophrenia or schizoaffective disorder. Discussed current recommendations, outpatient provider concurred with plan. The patient has continued to refuse medications and is now requesting a second opinion. She is also demanding an alternate attorney general. The patient was subsequently detained on a 14 day hold with seclusion as above. Patient reporting no side effects so far from Risperidone.Patient still with no insight, but is taking medication. [place] I: 1. Schizophrenia, chronic, paranoid type vs. Schizoaffective disorder 2. Marijuana use disorder. 3. Rule out amphetamine use disorder. [place] II: Deferred. [place] III: See past medical history. [place] IV: Loss of custody of children. Other stressors unknown. [place] V: Global Assessment of Functioning 30. Medications Risperdal 2mg nightly increase as tolerated Treatments 1. The [facility] and provided a safe and secure environment. 2. The patient is currently denying active suicidal ideation and is not in need of a one-to-one at this time. 3. The patient is encouraged to participate with group and milieu activities. 4. The patient will be seen by the treatment team on a daily basis to assess symptoms, side effects, and response to treatment. 5. LASHANDA Oswald, start risperidone 2mg po nightly. 6. Lorazepam 2 mg every 4 hours as needed for anxiety or agitation. 7. Olanzapine 10 mg q.6 hours due to severe agitation. 8. Zolpidem 5 mg nightly as needed for insomnia. 9. Anticipated length of stay is 10-14 days. Omari Vazquez MD Nov 16, 2016 23:46
--- NOTE | 2016-11-17 05:51 | NUR ---
Nursing Noc Pt pleasant and cooperative this shift. Out on milieu pariticpating in groups, crafting and socializing in a reality based manner. Pt talkative with both staff and patients. Noted to sleep through the night. Describes day as very good. Continuing to monitor mood behavior and emotional state. Q15 minute safety checks performed as directed. CP
--- NOTE | 2016-11-17 06:54 | NUR ---
OBSERVATIONS Pt was pleasant and cooperative with staff, social and appropriate with peers. Pt visited with mother. Pt showered and did laundry. Pt attended wrap-up group and was discouraged that she was unable to achieve her goal of being discharged and was upset with being put on a 14-day but was able to maintain a positive, future-focused attitude. Pt was recorded asleep at 2200 and woke at 0545 for a total of 7.75 hrs. Maintained Q15 checks for safety as directed.
[2016-11-17 10:00] VITALS: BP 132/103; PULSE 80; RESP 16
--- NOTE | 2016-11-17 16:20 | NUR ---
Nursing Dayshift: S: "I'm feeling anxious only because I want to go home." O: Patient acknowledging some anxiety "but not enough to where I need any pills." Denies depression, harmful thoughts, and hallucinations. Has been out in the public areas of the unit. Attending unit activities. Eating well at meals. C/O "I'm gaining so much weight in here. The food's pretty good for a hospital." Patient's foot wiggling at a moderate speed during conversation. Social with peers. A: Pleasant on approach. Interactive. No agitation. P: CPOC. Monitor mood and behavior.
--- NOTE | 2016-11-17 16:40 | PCM.PNPSY ---
Subjective Date of Service Nov 17, 2016 Subjective Today patient reports that she is feeling much better. She feels like medication is working with minimal side effects. She denies visual/auditory hallucinations, suicidal/homicidal ideations. She reports waking up a few times during sleep last night.She is eating well, and believes "may be even too much. 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 She c/o constipation and requested medications. Sleep:7.5 hours Appetite: fine Suicidal and homicidal ideation: denies Auditory hallucinations:denies Visual hallucinations: denies Other Psychotic Symptoms: poor insight Anxiety: much better, none at the moment Depression: 0/10 Current Medications Current Medications Risperidone 2 mg HS PO Last administered on 11/16/16t 21:13; Admin Dose 2 MG; Start 11/15/16 at 21:00 Mental Status Exam Vital Signs Vital Signs Date Time Temp Pulse Resp B/P Pulse Ox O2 Delivery O2 Flow Rate FiO2 11/17/16 10:00 36.2 80 16 132/103 Appearance: Neat/well groomed Attitude: Cooperative Behavior: No unusual behavior Affect: Well Modulated/Appropriate Mood: Euphoric Thought Process/Associations: Goal Directed Speech Production: Normal Speech Rate: Normal Speech Articulation: Normal Thought Content: Ideas of Reference, Suspicious, Perseveration Danger to Self/Suicidal Ideati: None Danger to Others: None Delusions: Grandiose (Endorses) Hallucinations: Auditory (Denies), Visual (Denies) Consciousness: Alert Orientation: Person, Place, Date, Situation Memory: Short Term Memory (Impaired) Estimate Intellectual Function: Average Basis for IQ estimate: Word use/vocabulary, Educational history Attention/Concentration & Cogn: Impaired Insight: Limited Judgement: Limited Mental Health Plan The patient is a 31-year-old female with a history of psychotic disorder who reportedly has been using Adderall. There is also some question of whether there is a history of schizophrenia. Review of records and family reports indicates a 3 year history of continuous symptoms which would support the diagnosis of schizophrenia. The patient did not follow up with outpatient mental health care and apparently had been declining prior to admission. On admission, she presented with paranoid delusions, ideas of reference and clang associations. She was quite agitated with little to no insight and not appropriate for discharge. Patient's psychiatrist reports patient has ongoing ideas of reference and delusions as above more consistent with schizophrenia or schizoaffective disorder. Discussed recommendations or lurasidone, outpatient provider concurred with plan. The patient continued to refuse medications and is now requesting a second opinion as well as a different senior attorney. The patient was subsequently detained on a 14 day hold and had an outburst following court, resulting in seclusion. The patient was given the choice of aripiprazole or risperidone as she will need a long-acting injectable prior to discharge. She was given informed consent including metabolic side effects and tardive dyskinesia and chose risperidone. Patient reporting no side effects so far from risperidone. Delusions appear to have been attenuated. Patient still with no insight, but is taking medication. [place] I: 1. Schizophrenia, chronic, paranoid type vs. Schizoaffective disorder 2. Marijuana use disorder. 3. Rule out amphetamine use disorder. [place] II: Deferred. [place] III: See past medical history. [place] IV: Loss of custody of children. Other stressors unknown. [place] V: Global Assessment of Functioning 30. Medications Risperdal 2mg nightly increase as tolerated Treatments 1. The [facility] is [facility] and provided a safe and secure environment. 2. The patient is currently denying active suicidal ideation and is not in need of a one-to-one at this time. 3. The patient is encouraged to participate with group and milieu activities. 4. The patient will be seen by the treatment team on a daily basis to assess symptoms, side effects, and response to treatment. 5. Continue risperidone 2mg po nightly. 6. Lorazepam 2 mg every 4 hours as needed for anxiety or agitation. 7. Olanzapine 10 mg q.6 hours due to severe agitation. 8. Zolpidem 5 mg nightly as needed for insomnia. 9. Start Miralax, 17 mg PO daily and Colace, 100 mg daily. 10. Anticipated length of stay is 10-14 days. Attending Statement The patient was seen and examined together with Dr. Martinez on 11/17/16 and I have added additional information to the note above. aVnessa Martinez DO Nov 17, 2016 16:40 Omari Vazquez MD Nov 18, 2016 09:20
--- NOTE | 2016-11-17 18:26 | NUR ---
Observations 0900 - 0 Pt affect and mood was friendly, content and hopeful. Pt speech and eye contact was good. Pt is pleasant, polite and cooperative when approached. Pt was out of her room most of the day. Pt attended community meeting and set a daily goal. Pt attended group or unit activities. Pt is social with peers. Pt attended meals in [employer] and has a good appetite. Pt ate about 100% of her meals. Pt ate snack. Pt went out on patio with staff and peers to get some fresh air and sunshine. Pt was observed every 15 minutes as ordered throughout the shift.
[2016-11-17] MEDS: risperiDONE 2 mg Tablet PO SCH (20:21)
[2016-11-17] MEDS: Magnesium Hydroxide 10 mL Oral Concentration PO PRN (20:22)
--- NOTE | 2016-11-17 21:00 | NUR ---
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 Patient denies S/I and H/I. She also denies auditory and visual hallucinations. Depression is 0/10 and anxiety is 0/10. A: Patient is cooperative, euphoric, suspicious, grandiose, limited insight, limited judgment. P: Follow care plan, coordinate with out-patient providers.
--- NOTE | 2016-11-18 05:25 | NUR ---
Nursing Note Ripper Operator 7pm to 7am Pt awake at start of shift, affect bright, mood congruent. Thoughts tangential and grandiose. Pt took HS meds including Ambien 5mg for insomnia, and MOM for constipation went to bed at 2200. Pt went to sleep at approx. 2200 and was up by 0430, fast walking with female peer. Monitored pt with q 15 minute face checks for safety location and accountability
[2016-11-18] MEDS: Polyethylene Glycol (PEG) 17 Gm Powder PO SCH (08:00)
[2016-11-18 10:00] VITALS: BP 128/87; PULSE 66; RESP 18
--- NOTE | 2016-11-18 14:10 | PCM.PNPSY ---
Subjective Date of Service Nov 18, 2016 Subjective I spent 30 minutes both reviewing treatment plan with our clinical team, interviewing the patient and providing supportive/educational psychotherapy. I spent more than 50% of the time counseling the patient. I reviewed the treatment plan with the patient and discussed options available including the potential risks, benefits and side effects. Joleen reports a marked improvement in thought organization and mood stability. Staff reports that she has been active and participating well in one-to-one unit and group activities. She slept 7 hours and denies manic or psychotic symptoms review. She denies medication side effects. She was able to identify her medications and what they were used to treat. The staff reported that Joleen is markedly improved from admission but continues to have ideas of reference and delusional thought. She has been socially appropriate. With me she was able to relate a coherent if not bizarre story about the events leading up to her admission. She appeared to have continued impairment in judgment and appeared to have mild but delusional thought about ownership of businesses and grandiose ideation. Current Medications Current Medications Docusate Sodium 100 mg DAILY PO Last administered on 11/18/16 08:00; Admin Dose 100 MG; Start 11/18/16 at 08:30 Polyethylene Glycol 17 gm DAILY PO Last administered on 11/18/16 08:00; Admin Dose 17 GM; Start 11/18/16 at 08:30 Mental Status Exam Appearance: Neat/well groomed Attitude: Cooperative Behavior: No unusual behavior Affect: Well Modulated/Appropriate Mood: Euphoric Thought Process/Associations: Goal Directed Speech Production: Normal Speech Rate: Normal Speech Articulation: Normal Thought Content: Ideas of Reference, Suspicious, Perseveration Danger to Self/Suicidal Ideati: None Danger to Others: None Delusions: Grandiose (Endorses) Consciousness: Alert Orientation: Person, Place, Date, Situation Memory: Short Term Memory (Impaired) Estimate Intellectual Function: Average Basis for IQ estimate: Word use/vocabulary, Educational history Attention/Concentration & Cogn: Impaired Insight: Limited Judgement: Limited Mental Health Plan The patient is a 31-year-old female with a history of psychotic disorder who reportedly has been using Adderall. There is also some question of whether there is a history of schizophrenia schizophrenia. The patient did not follow up with outpatient mental health care and apparently has been declining prior to admission. She initially presented with paranoid delusions, ideas of reference and clang associations. She was quite agitated with little to no insight. Patient's psychiatrist reports patient has ongoing ideas of reference and delusions as above more consistent with schizophrenia or schizoaffective disorder. I reviewed her case with Dr. Sloan paulino and discussed with her current recommendations, outpatient provider concurred with plan. She has been detained on a 14 day hold. Patient denies side effects so far from Risperidone.Patient still with poor insight, but is taking medication. [place] I: 1. Schizophrenia, chronic, paranoid type vs. Schizoaffective disorder 2. Marijuana use disorder. 3. Rule out amphetamine use disorder. [place] II: Deferred. [place] III: See past medical history. [place] IV: Loss of custody of children. Other stressors unknown. [place] V: Global Assessment of Functioning 30. Treatments Patient is being provided with a high degree of safety through our unit structure and active adult engagement provided by our mental health professionals, mental health technicians, psychiatric nurses and myself. We are focusing on developing improved coping skills and identifying stressors that may have led to current episode. We will attempt to: * Integrate into therapeutic groups, milieu and individual therapy. * Maintain in a closely monitored and structured unit * Provide low-stimulation environment * Obtain collateral data to assist in treatment planning * Assess degree of lability of affect and impulse control * Complete safety plan * Decrease frequency of relapse and need for re-hospitalization * Denies thoughts of harm to self and/or others * Establish a consistent sleep pattern * Medication effective in stabilization of mood and/or thought process * Reduce the risk of imminent harm to self and/or others by providing a safe environment * Tolerates medication without side effects Patient will be on the following psychiatric medications: Risperdal 2 mg at bedtime Patient's legal status Patient is on a 14 day involuntary treatment hold. Anticipated number of hospital days to achieve above goals: 5-14 Disposition: Home Kenneth Cleaning MD Nov 18, 2016 14:10
--- NOTE | 2016-11-18 15:23 | NUR ---
Strip Mill Operator/Counselor S:"I'm just ready to get out of here and go home, see my kids." O: Patient did not report any SI or HI, no AVH, no depression, and rated her anxiety at a 3. A: Patient stated that she may have a migraine coming on, and was going to ask the nurses for some medication. She stated she is doing her best to keep looking forward so she can be discharged soon. Patient was cooperative and friendly. She participated in group, spent time out in the milieu as well as on the patio. P:Follow care plan and coordinate with outpatient providers.
--- NOTE | 2016-11-18 18:17 | NUR ---
[facility] S: " I am going to [facility] this place, my dad is a media analytics manager and I am being held against my will I am a mother and they need to take that into consideration, they are just holding me here for their benefit, my HIPPA law has been broken because they told my parents I am here " O: Pt very anxious today after another patient went home. She was pacing the halls and had fast pressured speech. Pt rates anxiety at a 10/10, lorazepam 2mg po given. A: Patient is delusional thinking and has poor insight as to why she is here. Pt is easily agitated. Pt is participating with group and in the milieu with other patients. P: Follow plan of care, monitor behaviors. Monitor for side effects.
[2016-11-18] MEDS: Magnesium Hydroxide 10 mL Oral Concentration PO PRN (20:39)
[2016-11-18] MEDS: risperiDONE 2 mg Tablet PO SCH (20:39)
--- NOTE | 2016-11-19 02:56 | NUR ---
Nursing, NOC Patient visible on unit, participated in evening group session; enjoyed some time outdoors on the [employer] deck. Patient is showing increased stability w/ moods, participating in unit programming. Affect is brighter tonight, smiling and conversing with staff and select peers. PRN Ambien fairly effective for c/o sleeplessness. PRN Ativan given x 1 thru NOC. CTM for changs.
[2016-11-19] MEDS: LORazepam 2 mg Tablet PO PRN ×3 (02:59→20:46)
[2016-11-19] MEDS: Polyethylene Glycol (PEG) 17 Gm Powder PO SCH (07:49)
--- NOTE | 2016-11-19 13:16 | NUR ---
NURS NOTE DAYSHIFT Mood: Endorses anxiety 02/20 at 1000. Denies depression. Affect: Labile. Thought Process/Content: "When I said that I own the port, I meant that I feel like I already own the port. I've taken so many pictures of it for my internet of things, its hard to explain." Delusional, grandiose. Denies SI, HI. Denies AH, VH. Behavior: Pt showered in the morning. Speaking in loud tone and tearful on telephone after speaking with Dr. Cleaning. PRNs/NURS: Lorazepam 2 mg and acetaminophen 650 mg for migraine headache at 1000. Pt expressed dissatisfaction with breakfast, states that she needs a low-carb, low-fat diet.
--- NOTE | 2016-11-19 14:12 | NUR ---
Pressured, rapid speech. Angry with Dr. Cleaning and other staff for not "respecting her rights."
--- NOTE | 2016-11-19 17:05 | NUR ---
Observations [id number] Pt still very upset and expressive regarding her stay here. Pt was observed talking with other pt's regarding her stay, expressing that "it's a monopoly" and "I'm going to [facility] when I get out of here." Pt active on unit, friendly with peers and staff. Pt used phone and again was very upset and agitated during phone call. This automatic typewriter inspector observed her saying "I have to take the meds to get out of here, but I'm not going to after I'm out. It's not right." Pt attended all meals, eating 100%. Pt was observed every 15 minutes of shift as directed.
--- NOTE | 2016-11-19 18:16 | PCM.PNPSY ---
Subjective Date of Service Nov 19, 2016 Subjective I spent 30 minutes both reviewing treatment plan with our clinical team, interviewing the patient and providing supportive/educational psychotherapy. I spent more than 50% of the time counseling the patient. I reviewed the treatment plan with the patient and discussed options available including the potential risks, benefits and side effects. Joleen reports a marked improvement in thought organization and mood stability. Staff reports that she has been active and participating well in one-to-one unit and group activities. She slept 7 hours and denies manic or psychotic symptoms review. She denies medication side effects. She was able to identify her medications and what they were used to treat. The staff reported that Joleen is markedly improved from admission but continues to have ideas of reference and delusional thought. She has been socially appropriate. With me she was able to relate a coherent if not bizarre story about the events leading up to her admission. She appeared to have continued impairment in judgment and appeared to have mild but delusional thought about ownership of businesses and grandiose ideation. She is requesting discharge and having me drop her 14 day hold. At this time I do not think that is appropriate and when I related this to her she got quite upset and emotionally labile. I could not console her. Current Medications Current Medications Docusate Sodium 100 mg DAILY PO Last administered on 11/19/16 07:49; Admin Dose 100 MG; Start 11/18/16 at 08:30 Polyethylene Glycol 17 gm DAILY PO Last administered on 11/19/16 07:49; Admin Dose 17 GM; Start 11/18/16 at 08:30 Mental Status Exam Appearance: Neat/well groomed Attitude: Cooperative Behavior: Overtly anxious, Distractible Affect: Labile Mood: Expansive, Irritable Thought Process/Associations: Goal Directed Speech Production: Normal Speech Rate: Normal Speech Articulation: Normal Thought Content: Ideas of Reference, Suspicious, Perseveration Danger to Self/Suicidal Ideati: None Danger to Others: None Delusions: Grandiose (Endorses) Consciousness: Alert Orientation: Person, Place, Date, Situation Memory: Short Term Memory (Impaired) Estimate Intellectual Function: Average Basis for IQ estimate: Word use/vocabulary, Educational history Attention/Concentration & Cogn: Impaired Insight: Limited Judgement: Limited Mental Health Plan The patient is a 31-year-old female with a history of psychotic disorder who reportedly has been using Adderall. There is also some question of whether there is a history of schizophrenia schizophrenia. The patient did not follow up with outpatient mental health care and apparently has been declining prior to admission. She initially presented with paranoid delusions, ideas of reference and clang associations. She was quite agitated with little to no insight. Patient's psychiatrist reports patient has ongoing ideas of reference and delusions as above more consistent with schizophrenia or schizoaffective disorder. I reviewed her case with Dr. Vazquez and discussed with her current recommendations, outpatient provider concurred with plan. She has been detained on a 14 day hold. Patient denies side effects so far from Risperidone.Patient still with poor insight, but is taking medication. She is requesting discharge but I believe she will require at least 5 additional days if not the full 14. [place] I: 1. Schizophrenia, chronic, paranoid type vs. Schizoaffective disorder 2. Marijuana use disorder. 3. Rule out amphetamine use disorder. [place] II: Deferred. [place] III: See past medical history. [place] IV: Loss of custody of children. Other stressors unknown. [place] V: Global Assessment of Functioning 30. Treatments Patient is being provided with a high degree of safety through our unit structure and active adult engagement provided by our mental health professionals, mental health technicians, psychiatric nurses and myself. We are focusing on developing improved coping skills and identifying stressors that may have led to current episode. We will attempt to: * Integrate into therapeutic groups, milieu and individual therapy. * Maintain in a closely monitored and structured unit * Provide low-stimulation environment * Obtain collateral data to assist in treatment planning * Assess degree of lability of affect and impulse control * Complete safety plan * Decrease frequency of relapse and need for re-hospitalization * Denies thoughts of harm to self and/or others * Establish a consistent sleep pattern * Medication effective in stabilization of mood and/or thought process * Reduce the risk of imminent harm to self and/or others by providing a safe environment * Tolerates medication without side effects Patient will be on the following psychiatric medications: Risperdal 2 mg at bedtime Patient's legal status Patient is on a 14 day involuntary treatment hold. Anticipated number of hospital days to achieve above goals: 5-14 Disposition: Home Kenneth Cleaning MD Nov 19, 2016 18:16
[2016-11-19] MEDS: risperiDONE 2 mg Tablet PO SCH (20:43)
[2016-11-19] MEDS: Magnesium Hydroxide 10 mL Oral Concentration PO PRN (20:46)
--- NOTE | 2016-11-19 23:16 | NUR ---
Nurses Note Evening Patient has been upset since earlier in the day believing her rights have been violated regarding encouragement to remain medication compliant. Patient has no insight into illness or management of it. She outwardly expressed to peers she will not remain on medications once discharged. Encourage improved knowledge of illness,benefits of same,maintain q 15min. checks for safety and support. Addendum: 11/19/16 at 5379 by TIN HARDY RN Amended: Links added.
--- NOTE | 2016-11-20 00:12 | NUR ---
Observations 1900 to 0700 Pt attended and participated in wrap up group. Pt ate a snack. Pt had a visitor during shift. Pt spends free time watching TV and interacting with peers. Pt maintained behavioral control and showed no signs of abnormal behavior. Pt appeared asleep at 2200 and has remained asleep. Pt respirations were observed when asleep. Staff completed 15 min close observations as ordered.
[2016-11-20] MEDS: Polyethylene Glycol (PEG) 17 Gm Powder PO SCH (08:41)
[2016-11-20 09:00] VITALS: BP 139/92; PULSE 80; RESP 16
--- NOTE | 2016-11-20 11:31 | PCM.PNPSY ---
Subjective Date of Service Nov 20, 2016 Subjective I spent 30 minutes both reviewing treatment plan with our clinical team, interviewing the patient and providing supportive/educational psychotherapy. I spent more than 50% of the time counseling the patient. I reviewed the treatment plan with the patient and discussed options available including the potential risks, benefits and side effects. Joleen reports a marked improvement in thought organization and mood stability. Staff reports that she has been active and participating well in one-to-one unit and group activities. She reports sleeping 9 hours and denies manic or psychotic symptoms review. She denies suicidal and/or homicidal ideations. She reports no anxiety/depression today. She denies medication side effects. The only complaint she has is persistent constipation which is currently treated with 3 medications. She admits that she does not drink enough water throughout the day. She agreed to try to drink about 2 liters of water daily. She has been socially appropriate over the weekend. The staff reported that Joleen is markedly improved from admission but continues to have ideas of reference and delusional thought. Today she was very passionately talking about creating her own medical insurance company and she is confident that she will be able to receive millions of dollars from government grants to do so. It seems like Carla continues to have impairment in judgment and appeared to have mild but delusional thought about ownership of businesses and grandiose ideation. Again, she is requesting discharge as soon as possible as she believes she is currently more stable that she ever has been. Also, there is a planned family vacation to [place] which is being postponed due to her 14 day hold. A possible beneficial increase in Risperidone from 2 mg to 3 mg has been discussed but denied by the patient. Current Medications Risperidone 2 mg HS PO Last administered on 11/16/16 21:13; Admin Dose 2 MG; Start 11/15/16 at 21:00 Docusate Sodium 100 mg DAILY PO Last administered on 11/19/16 07:49; Admin Dose 100 MG; Start 11/18/16 at 08:30 Polyethylene Glycol 17 gm DAILY PO Last administered on 11/19/16 07:49; Admin Dose 17 GM; Start 11/18/16 at 08:30 Assessment I reviewed the case and met with the patient. I agree with above note and assessment. I conducted a family session between Carla and her mother Joleen. Mental Status Exam Appearance: Neat/well groomed Attitude: Cooperative Behavior: Overtly anxious, Distractible Affect: Labile Mood: Expansive, Irritable Thought Process/Associations: Goal Directed Speech Production: Normal Speech Rate: Normal Speech Articulation: Normal Thought Content: Ideas of Reference, Suspicious, Perseveration Danger to Self/Suicidal Ideati: None Danger to Others: None Delusions: Grandiose (Endorses) Consciousness: Alert Orientation: Person, Place, Date, Situation Memory: Short Term Memory (Impaired) Estimate Intellectual Function: Average Basis for IQ estimate: Word use/vocabulary, Educational history Attention/Concentration & Cogn: Impaired Insight: Limited Judgement: Limited Mental Health Plan The patient is a 31-year-old female with a history of psychotic disorder who reportedly has been using Adderall. There is also some question of whether there is a history of schizophrenia schizophrenia. The patient did not follow up with outpatient mental health care and apparently has been declining prior to admission. She is currently presenting with paranoid delusions, ideas of reference and clang associations. She is quite agitated with little to no insight and not appropriate for discharge. Patient's psychiatrist reports patient has ongoing ideas of reference and delusions as above more consistent with schizophrenia or schizoaffective disorder. Discussed current recommendations, outpatient provider concurred with plan. The patient has continued to refuse medications and is now requesting a second opinion. She is also demanding an alternate ip technology transactions attorney. The patient was subsequently detained on a 14 day hold with seclusion as above. Patient reporting no side effects so far from Risperidone.Patient still with no insight, but is taking medication. [place] I: 1. Schizophrenia, chronic, paranoid type vs. Schizoaffective disorder 2. Marijuana use disorder. 3. Rule out amphetamine use disorder. [place] II: Deferred. [place] III: See past medical history. [place] IV: Loss of custody of children. Other stressors unknown. [place] V: Global Assessment of Functioning 30. Treatments Patient is being provided with a high degree of safety through our unit structure and active adult engagement provided by our mental health professionals, mental health technicians, psychiatric nurses and myself. We are focusing on developing improved coping skills and identifying stressors that may have led to current episode. We will attempt to: * Integrate into therapeutic groups, milieu and individual therapy. * Maintain in a closely monitored and structured unit * Provide low-stimulation environment * Obtain collateral data to assist in treatment planning * Assess degree of lability of affect and impulse control * Complete safety plan * Decrease frequency of relapse and need for re-hospitalization * Denies thoughts of harm to self and/or others * Establish a consistent sleep pattern * Medication effective in stabilization of mood and/or thought process * Reduce the risk of imminent harm to self and/or others by providing a safe environment * Tolerates medication without side effects Patient will be on the following psychiatric medications: Risperdal 2 mg at bedtime Patient's legal status Patient is on a 14 day involuntary treatment hold. Anticipated number of hospital days to achieve above goals: 5-14 Disposition: Home Attending Statement I reviewed the above assessment and plan and agree with assessment and plan. I also met with Joleen and her mother for 30 minutes family session. Vanessa Martinez DO Nov 20, 2016 11:31 Kenneth Cleaning MD Nov 20, 2016 12:43
--- NOTE | 2016-11-20 15:59 | NUR ---
Legal Cashier/Counselor S:"The longer I stay here, the less I get better." O: Patient denies any SI or HI, no AVH, no depression or anxiety. A: Patient has been active on the unit, walking the hallway, interacting with other patients and participating in art projects. She has been cooperative and friendly, but insists that she should be allowed to go home before sunday. Her mother came for a family meeting with the Dr and Counselor. Patient is unwilling to go up in medication dosage but stated she will meet frequently with her outpatient provider. P: Follow care plan and coordinate with outpatient provider.
--- NOTE | 2016-11-20 16:11 | NUR ---
Nursing Day S- "You know my name is Falguni, its the other name I gave myself when I was living in [place]. Its an artist name, it has a good sound to it." Pt. stated this after watching a quick part of a soap opera where a little girls name is called Falguni in the show. That is how the Pt. started the conversation. O- Pt. up this morning and eating meals in the dining room socializing with other Pts. Well-kept and appears cheerful. A- Pt. behavioral appearance is appropriate not yelling at stuff or others and denies hearing or seeing anything. No current thoughts of hurting herself or others. P- Follow plan of care, monitor behavior, monitor side effects of medication, safety to Pt. and others
[2016-11-20] MEDS: risperiDONE 2 mg Tablet PO SCH (20:33)
[2016-11-20] MEDS: Magnesium Hydroxide 10 mL Oral Concentration PO PRN (20:36)
[2016-11-20] MEDS: LORazepam 2 mg Tablet PO PRN (20:36)
--- NOTE | 2016-11-20 22:14 | NUR ---
7-11 NURSING NOTE Patient presents as appropriate in mood and interaction with peers. Attending groups. Appears upbeat about the future. Continue to monitor.
--- NOTE | 2016-11-20 23:55 | NUR ---
NOC OBS Pt out on unit much of evening, attended group and interacted with peers. Mood happy and interactions positive. Asleep 2300-500. Observed Q15 as ordered.
--- NOTE | 2016-11-21 05:57 | NUR ---
Nursing Turbine Attendant 11pm to 7am Pt asleep at star of shift and slept the duration of the shift. Pt awoke at 0500 and came out to Day Room to socialize with peers. Thought organized, logical and linear. Mood and affect bright. Will continue to monitor with 15 min safety checks for safety, location and accountability
[2016-11-21 07:45] VITALS: BP 141/88; PULSE 77; RESP 18
[2016-11-21] MEDS: Polyethylene Glycol (PEG) 17 Gm Powder PO SCH (08:27)
--- NOTE | 2016-11-21 12:31 | PCM.PNPSY ---
Subjective Date of Service Nov 21, 2016 Subjective I spent 30 minutes both reviewing treatment plan with our clinical team, interviewing the patient and providing supportive/educational psychotherapy. I spent more than 50% of the time counseling the patient. I reviewed the treatment plan with the patient and discussed options available including the potential risks, benefits and side effects. Joleen reports a marked improvement in thought organization and mood stability. Staff reports that she has been active and participating well in one-to-one unit and group activities. Staff reports she slept 6 hours and she denies manic or psychotic symptoms review. She denies suicidal and/or homicidal ideations. She reports no anxiety/depression today. She denies medication side effects. Mental Status Exam Vital Signs Vital Signs Date Time Temp Pulse Resp B/P Pulse Ox O2 Delivery O2 Flow Rate FiO2 11/21/16 07:45 36.4 77 18 141/88 Appearance: Neat/well groomed Attitude: Cooperative Behavior: Overtly anxious, Distractible Affect: Labile Mood: Expansive Thought Process/Associations: Goal Directed Speech Production: Normal Speech Rate: Normal Speech Articulation: Normal Thought Content: Ideas of Reference, Suspicious, Perseveration Danger to Self/Suicidal Ideati: None Danger to Others: None Delusions: Grandiose (Endorses) Consciousness: Alert Orientation: Person, Place, Date, Situation Memory: Short Term Memory (Impaired) Estimate Intellectual Function: Average Basis for IQ estimate: Word use/vocabulary, Educational history Attention/Concentration & Cogn: Impaired Insight: Limited Judgement: Limited Mental Health Plan The patient is a 31-year-old female with a history of psychotic disorder who reportedly has been using Adderall. There is also some question of whether there is a history of schizophrenia schizophrenia. The patient did not follow up with outpatient mental health care and apparently has been declining prior to admission. She initially presented with paranoid delusions, ideas of reference and clang associations. She was quite agitated with little to no insight. Patient's psychiatrist reports patient has ongoing ideas of reference and delusions as above more consistent with schizophrenia or schizoaffective disorder. I reviewed her case with Dr. Vazquez and discussed with her current recommendations, outpatient provider concurred with plan. She has been detained on a 14 day hold. Patient denies side effects so far from Risperidone.Patient still with poor insight, but is taking medication. She is requesting discharge but I believe she will require for additional days to stabilize. [place] I: 1. Schizophrenia, chronic, paranoid type vs. Schizoaffective disorder 2. Marijuana use disorder. 3. Rule out amphetamine use disorder. [place] II: Deferred. [place] III: See past medical history. [place] IV: Loss of custody of children. Other stressors unknown. [place] V: Global Assessment of Functioning 35. Treatments Patient is being provided with a high degree of safety through our unit structure and active adult engagement provided by our mental health professionals, mental health technicians, psychiatric nurses and myself. We are focusing on developing improved coping skills and identifying stressors that may have led to current episode. We will attempt to: * Integrate into therapeutic groups, milieu and individual therapy. * Maintain in a closely monitored and structured unit * Provide low-stimulation environment * Obtain collateral data to assist in treatment planning * Assess degree of lability of affect and impulse control * Complete safety plan * Decrease frequency of relapse and need for re-hospitalization * Denies thoughts of harm to self and/or others * Establish a consistent sleep pattern * Medication effective in stabilization of mood and/or thought process * Reduce the risk of imminent harm to self and/or others by providing a safe environment * Tolerates medication without side effects Patient will be on the following psychiatric medications: Risperdal 2 mg at bedtime Patient's legal status Patient is on a 14 day involuntary treatment hold. Anticipated number of additional hospital days to achieve above goals: 4 Disposition: Home Kenneth Cleaning MD Nov 21, 2016 12:31
[2016-11-21] MEDS: LORazepam 2 mg Tablet PO PRN (12:56)
--- NOTE | 2016-11-21 16:00 | NUR ---
Wheelchair Driver/Counselor S: I feel like emotions are really important. There are no shades of huynh." O: Patient did not report any SI or HI, no AVH, no depression, and rated her anxiety as low to none. A: Patient participated in group but has been impatient with staff in regards to being allowed to be in the group room and using equipment unsupervised (ie.scissors). She is still grandiose and tangential. She is P: Follow care plan and coordinate with outpatient providers.
--- NOTE | 2016-11-21 19:00 | NUR ---
Nursing 0700 to 1900 S: I never should have been brought her in the first place. It's not illegal to yell in public. My rights were violated. O: Assistant Basketball Coach spoke briefly with Joleen. She asked questions about court tomorrow. Understands that it affects discharge. States she plans to continue treatment with [facility] in [place]. States she will agree with being monitored by court order. Taking scheduled meds as offered. No mention of delusional material that was present at time of admission. A: Lacks insight into mental status. P: Support toward discharge.
[2016-11-21] MEDS: risperiDONE 2 mg Tablet PO SCH (20:05)
--- NOTE | 2016-11-21 23:55 | NUR ---
NOC OBS [id number] Pt out on unit in evening, easily agitated and restless. Asleep 2145-315. Observed Q15 as ordered.
[2016-11-22] MEDS: LORazepam 2 mg Tablet PO PRN ×3 (03:17→19:03)
--- NOTE | 2016-11-22 03:46 | NUR ---
NOC NURSING NOTE Patient presents with flat affect and irritable mood. Became agitated during tv time, stormed down the cardenas stating, "I'm sick of how some people are so Rude," in a very loud voice. She went straight to her room and was able to explain that she was frustrated with another patient that was frequently antagonizing her. She was reminded that she had made the right decision to remove herself from the situation and given encouragement to continue to maintain her composure to benefit her own treatment. Patient agreed and was able to avoid the situation the rest of the evening, going to bed early. She is up again at 0345, sitting at table unable to sleep and drinking water. Will continue to monitor for safety.
[2016-11-22] MEDS: Polyethylene Glycol (PEG) 17 Gm Powder PO SCH (08:01)
[2016-11-22 10:21] VITALS: BP 132/92; PULSE 81; RESP 16
--- NOTE | 2016-11-22 12:34 | NUR ---
Obs Dayshift Pt is minimally participating in groups, focused on her DC and why is isn't allowed to leave before Sunday. Pt denies VH/AH, or wanting to hurt anyone. Pt is superficial w/ peers and staff, irritable engagement w/ staff. Pt is disorganized, Oriented x3 not really to her situation. Pt is focusing on why everyone is out to get her, and what others should be doing for her. Pt is more calm than the last few days. Ok ADL's, Good meals
--- NOTE | 2016-11-22 15:16 | NUR ---
Nursing Dayshift: S: "I'm not being a victim. I just wish we could go back to [place]. We had friends there." O: Patient verbalizing anger at having to stay till Sunday. Discussed "everything going wrong. We moved from [place], and we moved from [place]. I had no say in the matter." Very irritable after court where patient received a 90 day LRO with 2 days. "I should be able to leave today. I should never have had to come here." Patient calmed after receiving Ativan 2 mg PO at 1345. Social with peers this afternoon. Anxiety a /. Denies depression, harmful thoughts, and hallucinations. A: Talkative. More acceptable of staying 2 more days. P: CPOC. Monitor mood and behavior.
--- NOTE | 2016-11-22 15:47 | PCM.PNPSY ---
Subjective Date of Service Nov 22, 2016 Subjective I spent 30 minutes both reviewing treatment plan with our clinical team, interviewing the patient and providing supportive/educational psychotherapy. I spent more than 50% of the time counseling the patient. I reviewed the treatment plan with the patient and discussed options available including the potential risks, benefits and side effects. Staff reports that she has been active and participating well in one-to-one unit and group activities. She has been socially appropriate. The staff reported that Joleen is markedly improved from admission but continues to have ideas of reference and delusional thought. It seems like Carla continues to have impairment in judgment and as staff reported, appeared to have mild but delusional thoughts. Today she says she believes she was [place] in her previous life so that is why she is so special and spiritual. Today she was very upset because she found out that her parents told her kids that she is in the hospital. She believes they have no business volunteering this information. She reports not sleeping well last night as she is anxious about getting out of here. She denies manic or psychotic symptoms review. She denies suicidal and/or homicidal ideations. She reports no depression today. She denies medication side effects. Constipation she has been suffering for a while is finally resolved. She reports a marked improvement in thought organization and mood stability. She believes she is ready to be discharged. She also stated that she needs her Adderall and as soon as she gets out from the hospital she will see her psychiatrist so he can give her a prescription. She also mentioned that he knows what is best for her and if he decides that she does not need to continue Risperidone, than she will immediately stop taking it. On the bright note, she is very happy about her upcoming discharge on Sunday. Mental Status Exam Vital Signs Vital Signs Date Time Temp Pulse Resp B/P Pulse Ox O2 Delivery O2 Flow Rate FiO2 11/22/16 10:21 36.2 81 16 132/92 Appearance: Neat/well groomed Attitude: Cooperative Behavior: Overtly anxious, Distractible Affect: Well Modulated/Appropriate Mood: Expansive Thought Process/Associations: Goal Directed Speech Production: Normal Speech Rate: Normal Speech Articulation: Normal Thought Content: Appropriate, Perseveration Danger to Self/Suicidal Ideati: None Danger to Others: None Delusions: Grandiose (Endorses) Consciousness: Alert Orientation: Person, Place, Date, Situation Memory: Short Term Memory Estimate Intellectual Function: Average Basis for IQ estimate: Word use/vocabulary, Educational history Attention/Concentration & Cogn: Impaired Insight: Limited Judgement: Limited Mental Health Plan The patient is a 31-year-old female with a history of psychotic disorder who reportedly has been using Adderall. There is also some question of whether there is a history of schizophrenia schizophrenia. The patient did not follow up with outpatient mental health care and apparently has been declining prior to admission. She is currently presenting with paranoid delusions, ideas of reference and clang associations. She is quite agitated with little to no insight and not appropriate for discharge. Patient's psychiatrist reports patient has ongoing ideas of reference and delusions as above more consistent with schizophrenia or schizoaffective disorder. Discussed current recommendations, outpatient provider concurred with plan. The patient has continued to refuse medications and is now requesting a second opinion. She is also demanding an alternate producer. The patient was subsequently detained on a 14 day hold with seclusion as above. Patient reporting no side effects so far from Risperidone.Patient still with poor insight, but is taking medication. [place] I: 1. Schizophrenia, chronic, paranoid type vs. Schizoaffective disorder 2. Marijuana use disorder. 3. Rule out amphetamine use disorder. [place] II: Deferred. [place] III: See past medical history. [place] IV: Loss of custody of children. Other stressors unknown. [place] V: Global Assessment of Functioning 35. Treatments Patient is being provided with a high degree of safety through our unit structure and active adult engagement provided by our mental health professionals, mental health technicians, psychiatric nurses and myself. We are focusing on developing improved coping skills and identifying stressors that may have led to current episode. We will attempt to: * Integrate into therapeutic groups, milieu and individual therapy. * Maintain in a closely monitored and structured unit * Provide low-stimulation environment * Obtain collateral data to assist in treatment planning * Assess degree of lability of affect and impulse control * Complete safety plan * Decrease frequency of relapse and need for re-hospitalization * Denies thoughts of harm to self and/or others * Establish a consistent sleep pattern * Medication effective in stabilization of mood and/or thought process * Reduce the risk of imminent harm to self and/or others by providing a safe environment * Tolerates medication without side effects Patient will be on the following psychiatric medications: Risperdal 2 mg at bedtime Patient's legal status Patient is on a 14 day involuntary treatment hold. Anticipated number of additional hospital days to achieve above goals: 4 Disposition: Home on 11/24/16 if she continues to show gradual progress that she has been demonstrating.. Attending Statement I met with Carla as well as discussed the case with Dr. Martinez. I agree with Dr. Martinez's assessment and plan Vanessa Martinez DO Nov 22, 2016 15:47 Kenneth Cleaning MD Nov 22, 2016 16:24
--- NOTE | 2016-11-22 19:05 | NUR ---
Nurses Note PRN Patient requested and received Ativan 2mg for increasing irritability and anxiety related to "being locked up until Sunday."Will assess response.
--- NOTE | 2016-11-22 20:03 | NUR ---
informatics manager/Counselor: S: "My parents had no business telling my kids about me being in the hospital." O: Patient slept 6.5 hours last night per staff. Patient denies S/I and H/I. She also denies auditory and visual hallucinations. Depression is 0/10 and anxiety is "a little"/10. Patient is scheduled to discharge Sunday and patient is happy about the upcoming discharge. A: Patient is cooperative, anxious, distractible, grandiose, limited insight, limited judgment. P: Follow care plan, coordinate with out-patient providers.
[2016-11-22] MEDS: risperiDONE 2 mg Tablet PO SCH (21:25)
--- NOTE | 2016-11-23 05:02 | NUR ---
nursing, nights, 11-7 s/o- has appeared to sleep after 2200 during q 15 minute assessments. a- no apparent distress. p- monitor behavior/emotional state, quality, times and amount of sleep, use and effect of medication. kinsey
[2016-11-23] MEDS: LORazepam 2 mg Tablet PO PRN ×3 (07:36→20:49)
[2016-11-23] MEDS: Polyethylene Glycol (PEG) 17 Gm Powder PO SCH (07:37)
--- NOTE | 2016-11-23 11:21 | PCM.PNPSY ---
Subjective Date of Service Nov 23, 2016 Subjective I spent 30 minutes both reviewing treatment plan with our clinical team, interviewing the patient and providing supportive/educational psychotherapy. I spent more than 50% of the time counseling the patient. I reviewed the treatment plan with the patient and discussed options available including the potential risks, benefits and side effects. Staff reports that she has been active and participating well in one-to-one unit and group activities. She has been socially appropriate. The staff reported that Joleen is markedly improved from admission but continues to have ideas of reference and delusional thought. It seems like Carla continues to have impairment in judgment and as staff reported, appeared to have mild but delusional thoughts. Today she reports feeling was very happy as she will be discharged tomorrow. She reported that her parents will drop off her car keys today so she can drive herself to [place], [place], where she has a hotel room. The reason she is going there first instead of home to see her children, is because she has some unfinished projects there she needs to work on. 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 After she finishes her photo project , her mom and her children are going to drive to [place] to spend a few days in [employer]. He , Maynor Aleman, who currently lives in [place], will join them as well. 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 She reports sleeping well last night, denies anxiety and/or depression. She denies manic or psychotic symptoms review. She denies suicidal and/or homicidal ideations. She denies medication side effects, denies constipation. Mental Status Exam Appearance: Neat/well groomed Attitude: Cooperative Behavior: Overtly anxious, Distractible Affect: Well Modulated/Appropriate Mood: Expansive Thought Process/Associations: Goal Directed Speech Production: Normal Speech Rate: Normal Speech Articulation: Normal Thought Content: Appropriate, Perseveration Danger to Self/Suicidal Ideati: None Danger to Others: None Delusions: Grandiose (Endorses) Consciousness: Alert Orientation: Person, Place, Date, Situation Memory: Short Term Memory Estimate Intellectual Function: Average Basis for IQ estimate: Word use/vocabulary, Educational history Attention/Concentration & Cogn: Impaired Insight: Limited Judgement: Limited Mental Health Plan The patient is a 31-year-old female with a history of psychotic disorder who reportedly has been using Adderall. There is also some question of whether there is a history of schizophrenia schizophrenia. The patient did not follow up with outpatient mental health care and apparently has been declining prior to admission. She is currently presenting with paranoid delusions, ideas of reference and clang associations. She is quite agitated with little to no insight and not appropriate for discharge. Patient's psychiatrist reports patient has ongoing ideas of reference and delusions as above more consistent with schizophrenia or schizoaffective disorder. Discussed current recommendations, outpatient provider concurred with plan. The patient has continued to refuse medications and is now requesting a second opinion. She is also demanding an alternate enamel machine operator. The patient was subsequently detained on a 14 day hold with seclusion as above. Patient reporting no side effects so far from Risperidone.Patient still with no insight, but is taking medication.She continues to have some delusional thoughts and racing thought. Not sure if she will be compliant with her psychiatric medications once she is discharge. [place] I: 1. Schizophrenia, chronic, paranoid type vs. Schizoaffective disorder 2. Marijuana use disorder. 3. Rule out amphetamine use disorder. [place] II: Deferred. [place] III: See past medical history. [place] IV: Loss of custody of children. Other stressors unknown. [place] V: Global Assessment of Functioning 40. Treatments Patient is being provided with a high degree of safety through our unit structure and active adult engagement provided by our mental health professionals, mental health technicians, psychiatric nurses and myself. We are focusing on developing improved coping skills and identifying stressors that may have led to current episode. We will attempt to: * Integrate into therapeutic groups, milieu and individual therapy. * Maintain in a closely monitored and structured unit * Provide low-stimulation environment * Obtain collateral data to assist in treatment planning * Assess degree of lability of affect and impulse control * Complete safety plan * Decrease frequency of relapse and need for re-hospitalization * Denies thoughts of harm to self and/or others * Establish a consistent sleep pattern * Medication effective in stabilization of mood and/or thought process * Reduce the risk of imminent harm to self and/or others by providing a safe environment * Tolerates medication without side effects Patient will be on the following psychiatric medications: Risperdal 2 mg at bedtime Patient's legal status Patient is on a 14 day involuntary treatment hold. Anticipated number of additional hospital days to achieve above goals: 4 Disposition: Home on 11/24/16 if she continues to show gradual progress that she has been demonstrating.. Attending Statement I reviewed the case with Dr. Martinez and agree with her assessment and plan. Vanessa Martinez DO Nov 23, 2016 11:21 Kenneth Cleaning MD Nov 23, 2016 12:38
[2016-11-23 16:07] VITALS: BP 132/93; PULSE 79; RESP 17
--- NOTE | 2016-11-23 18:30 | NUR ---
Nursing Day Shift: Patient has been inquisitive about "when I can leave tomorrow. How about just after midnight?" Explained it would be no later than noon. Patient scowled. Has been in a progressively better mood since. Good appetite. Social with peers and staff. Will monitor mood and behavior.
[2016-11-23] MEDS: Magnesium Hydroxide 10 mL Oral Concentration PO PRN (20:49)
[2016-11-23] MEDS: risperiDONE 2 mg Tablet PO SCH (20:50)
--- NOTE | 2016-11-24 02:22 | NUR ---
Observations 1900 to 0700 Pt attended and participated in wrap up group. Pt ate a snack. Pt is social with peers but wished to go to bed early due to having mild anxiety about discharging. Pt maintained behavioral control and showed no signs of abnormal behavior. Pt appeared asleep at 2130 and has remained asleep. Pt respirations were observed when asleep. Staff completed 15 min close observations as ordered.
[2016-11-24] MEDS: LORazepam 2 mg Tablet PO PRN (04:43)
[2016-11-24] MEDS: Polyethylene Glycol (PEG) 17 Gm Powder PO SCH (08:11)
[2016-11-24] MEDS ORDERED: RISP2TAB21 PO (10:42)
--- NOTE | 2016-11-24 10:44 | PCM.DIMED ---
Discharge Instructions Date of Service Nov 24, 2016 Dates of Hospitalization Nov 10, 2016 at 05:25 Discharge Diagnosis Discharge Diagnosis [place] I: 1. Schizoaffective disorder 2. Marijuana use disorder. [place] II: Deferred. [place] III: See past medical history. [place] IV: Loss of custody of children. Other stressors unknown. [place] V: Global Assessment of Functioning 45 Medication Instructions Additional med instructions I Strongly encouraged patient to follow up with outpatient care: 1-Recommended patient takes medication as prescribed and not alter this unless under the direct care of a provider. 2-Recommend client refrain from recreational drugs and alcohol while taking psychiatric medications. 3--Recommend patient attempt to find a therapist or group to deal with impulse control and interpersonal relationship conflicts Diet Discharge Diet: No restrictions Activity Discharge Activity: No restrictions Patient Instructions Follow-up plan Dr. Farah: [facility] for psychiatric appointment Follow-up with PCP in: 2 weeks Kenneth Cleaning MD Nov 24, 2016 10:44
--- NOTE | 2016-11-24 11:45 | NUR ---
Nursing Discharge Note: Patient cooperative with discharge process. Acknowledges understanding of d/c instructions and has a copy with them upon leaving unit at 1110. Belongings accounted for and with patient. Prescription with patient to be filled by her at her pharmacy. Patient denies harmful thoughts and hallucinations at this time.
--- NOTE | 2016-11-24 13:57 | DIS ---
[address] [address] DISCHARGE SUMMARY PATIENT: HOWIE MODI : 1985 MR#: [id number] ADMIT: 11/10/2016 JOB ID: [id number] DIS: 11/24/2016 IDENTIFYING DATA: The patient is a 31-year-old single, white female. She is the eldest of three children and has a younger brother and sister. She believes that she is adopted. She has good support by her mother and father and she lives in [place]. REASON FOR ADMISSION: "I have no understanding of why I am here." The patient was admitted on an involuntary treatment hold after a recent manic episode with psychotic thought. SUMMARY OF PRESENT ILLNESS: The patient is a 31-year-old white female with a history of a psychotic disorder who has been using Adderall for focus. She began to have increasing symptoms of delusions believing that she predicted the [place] terror attacks, had connection to [employer] and incurred a no trespass order from her son's school. She also had domestic violence charge from her [id number]. At the same time she was spending over 3000 dollars on web sites buying names for [employer] and stealing from the family. It was unclear whether she was suffering from a substance induced psychotic disorder or a primary diagnosis such as schizoaffective disorder or bipolar mood disorder with psychosis. Eventually her behavior has escalated to the point where she was screaming in the street and had altercations with the police. She had to be placed in restraints due to aggressive behavior in the emergency department and had made homicidal statements about her mother and father. The parents were awarded temporary custody of her two children. According to the police affidavit, the patient had become combative and verbally aggressive with both police and bystanders while standing in the street by her parents home. When she was initially admitted, she was severely uncooperative. HOSPITAL COURSE: Client was admitted to our unit and was provided with a high degree of safety through the structure and active adult engagement she received here. We attempted to make a therapeutic alliance with her at the same time providing high structure. Her scheduled amphetamines were discontinued and she was started on Risperdal. She would not take more than 2 mg of Risperdal at night. With a combination of low-dose Risperdal structure and active engagement, she showed a gradual and steady improvement in thought organization and mood stability over a 15 day period. The progress was slow and gradual but she did have steady improvement with decreased intensity of her psychotic delusions of paranoia and grandiose behaviors as well as improved social interactions. Over the past 72 hours, she has had a nearly complete resolution of psychotic symptoms and is interacting in a socially appropriate manner. She has poor insight and does not believe she has a mental illness and believes she only needs amphetamines. However, she is willing to take the Risperdal at this time and does feel that it helps calm her mind. MENTAL STATUS EXAMINATION: Client neatly and stylishly dressed. Good eye contact. Calm, pleasant, cooperative. Mood euthymic. Affect congruent. Normal intensity. Thought process: Client is showing coherent, logical and spontaneous thoughts. No signs of psychosis. Thought content: Significant for future planning, how to take care of her financial needs and her mental health. She detailed a reasonable safety plan. Denied suicidal or homicidal ideation or intent. Insight and judgment improved although is in degree of denial about her mental illness and need for medications. Impulse control highly contained. Reality testing intact. Competence to handle current stressors appears to be at baseline. DISCHARGE DIAGNOSIS: AXIS I 1. Schizoaffective disorder. 2. Marijuana abuse. 3. Rule out amphetamine induced psychosis. AXIS II Defer. AXIS III Non insulin-dependent diabetes. AX[place] IV Loss of custody of children, stressors at home. AX[place] V Global assessment of functioning 45. DISCHARGE PLAN: Client to followup with Dr. Gagan Griffin, her psychiatrist in [place] for the past three years, for ongoing psychiatric care. She will see him next Sunday. She also sees Dr. Rubalcava and Olive through [facility] in [place]. DISCHARGE MEDICATIONS: Risperdal 2 mg h.s. ACTIVITIES AND DIET: Recommend client refrain from recreational drugs and alcohol while taking psychiatric medications. Recommend she not change medications unless under the supervision of a physician. CONDITION ON DISCHARGE: Good. PROGNOSIS: Guarded. Client has poor insight into the relationship between amphetamines and bipolar and psychotic behaviors and symptoms.
--- NOTE | 2016-11-24 17:17 | NUR ---
forensic manager/Counselor: S: "I'm happy to be discharging." O: Patient slept 6.5 hours last night per staff. Patient denies S/I and H/I. She also denies auditory and visual hallucinations. Depression is 0/10 and anxiety is 0/10. Out-patient appointments:Dr. Rubalcava, [facility] medication monitor, 11/27/16 at 1:15pm and [facility] counselor, 11/27/16 at 3:00pm. A: Patient is cooperative, hopeful, future oriented, fair insight, fair judgment. P: Follow care plan, coordinate with out-patient providers.
== END 2016-11-24 11:11 | disposition home or self-care (01) | DRG 885 ==
LOC: SED 14:23 → MHC 11-10 05:25
PROVIDERS: ADMIT Psychiatry & Neurology Psychiatry; ATTEND Psychiatry & Neurology Psychiatry
DX: F25.9 Schizoaffective disorder, unspecified (principal); E11.9 Type 2 diabetes mellitus without complications; F12.10 Cannabis abuse, uncomplicated